=== PATIENT | female | born 1935 | race Caucasian/White ===

== ENCOUNTER 2016-04-26 13:52 | Observation (INO) | payer MEDICARE, BC ==
[2016-04-26] VITALS (8 sets, daily range): BP systolic 136–149; BP diastolic 60–73; PULSE 78–90; RESP 16–18; TEMP 98.2; O2SAT 94–98
[~2016-04-26] VITALS: Ht 162.6 cm; Wt 83.4 kg
[~2016-04-26 13:52] MED LIST: ALBU1AER INH; LEVO.075 PO; OXYC-360 PO; methotrexate IM
[2016-04-26] MEDS ORDERED: ALBUAER3 INH (14:06)
[2016-04-26] MEDS ORDERED: LEVO75TA3 PO (14:06)
[2016-04-26] MEDS ORDERED: METH2.5T PO (14:06)
[2016-04-26] MEDS ORDERED: PERC5TAB12 PO (14:06)
[2016-04-26] MEDS ORDERED: SODIUM CHLORIDE 0.9% FLUSH 5 ML FLUSH IVF PRN (14:15)
[2016-04-26 14:25] LABS: AUTOMATED NEUTROPHIL # 6.5 TH/MM3 (1.8-7.7); BASOPHIL % 0.5 % (0.0-2.0); EOSINOPHIL % 0.1 % (0.0-4.0); HEMATOCRIT 37.1 % (35.0-46.0); HEMO FLAGS DIFF FINAL; LYMPH % 6.9 % (9.0-44.0); LYMPHOCYTE # 0.5 TH/MM3 (1.0-4.8); MEAN CORPUSCULAR HEMOGLOBIN 32.4 PG (27.0-34.0); MEAN CORPUSCULAR HGB CONC 34.5 % (32.0-36.0); NEUT % 81.5 % (16.0-70.0); PLATELET COUNT 251 TH/MM3 (150-450); RED BLOOD COUNT 3.95 MIL/MM3 (4.00-5.30); RED CELL DISTRIBUTION WIDTH 14.4 % (11.6-17.2)
--- NOTE | 2016-04-26 14:36 | PD ---
HPI Chief Complaint: Syncope/Near-Syncope Time Seen by Provider: 14:01 Travel History International Travel<30 days: No Contact w/Intl Traveler<30days: No Traveled to known affect area: No History of Present Illness HPI Patient is a 72-year-old female with history of COPD who presents the emergency department with near-syncopal episode. She felt fine this morning and was doing some light housework. While standing she developed lightheadedness, dizziness, nausea and felt as though she may faint and fell to the ground. No complete syncopal episode. She denies any chest pain, worsening shortness of breath from baseline. EMS arrived and helped patient up from the floor. Her vital signs were unremarkable and she declined transport. Family came to be with patient for the rest of the day and she had a second episode nearly identical. This time he was called patient was hypotensive with systolics in the 80s prompting them to transport patient. In route, vital signs normal and patient denies any symptoms at this time. She denies any history of arrhythmia or recent GI bleeding. PFSH Past Medical History Arthritis: Yes Cancer: No Cardiovascular Problems: No COPD: Yes Endocrine: No Genitourinary: No Immune Disorder: Yes (ra) Neurologic: No Psychiatric: No Reproductive: No Respiratory: Yes Ulcer: Yes (hx of) Social History Alcohol Use: No Tobacco Use: No Substance Use: No Allergies-Medications (Allergen,Severity, Reaction): Coded Allergies: No Known Allergies (Unverified , 04/26/16) Reported Meds & Prescriptions Reported Meds & Active Scripts Active Reported Percocet (Oxycodone-Acetaminophen) 5-325 mg Tab 1 Tab PO Q4H PRN Proair Hfa 8.5 GM Inh (Albuterol Sulfate) 90 Mcg/Act Aer 1 Puff INH Q6HR PRN 108 mcg/actuation Methotrexate Unknown Strength Tab Unknown Dose PO Q7D Levothyroxine (Levothyroxine Sodium) 75 Mcg Tab 75 Mcg PO DAILY Review of Systems Except as stated in HPI: all other systems reviewed are Neg Physical Exam Narrative GENERAL: Elderly female in no acute distress SKIN: Warm and dry. HEAD: Normocephalic. EYES: No scleral icterus. No injection or drainage. ENT: Mucous membranes pink and moist. NECK: Supple CARDIOVASCULAR: Regular rate and rhythm. No murmur appreciated. RESPIRATORY: No accessory muscle use. Clear to auscultation. Breath sounds equal bilaterally. GASTROINTESTINAL: Abdomen soft, non-tender, nondistended. MUSCULOSKELETAL: No obvious deformities. No edema. NEUROLOGICAL: Awake and alert. Normal speech. PSYCHIATRIC: Appropriate mood and affect; insight and judgment normal. Data Data Last Documented VS Vital Signs Date Time Temp Pulse Resp B/P Pulse Ox O2 Delivery O2 Flow Rate FiO2 04/26/16 15:20 86 18 146/67 79 18 149/73 04/26/16 14:03 94 Room Air 04/26/16 13:59 98.2 Orders Electrocardiogram (04/26/16 14:01) Basic Metabolic Panel (Bmp) (04/26/16 14:01) Complete Blood Count With Diff (04/26/16 14:01) Magnesium (Mg) (04/26/16 14:01) Troponin I (04/26/16 14:01) Urinalysis - C+S If Indicated (04/26/16 14:01) Ecg Monitoring (04/26/16 14:01) Iv Access Insert/Monitor (04/26/16 14:01) Oximetry (04/26/16 14:01) Sodium Chloride 0.9% Flush (Ns Flush) (04/26/16 14:15) Orthostatic Vital Signs (04/26/16 14:52) Admit Order (Ed Use Only) (04/26/16 16:40) Labs Laboratory Tests Test 04/26/16 04/26/16 14:08 15:05 White Blood Count 8.0 TH/MM3 Red Blood Count 3.95 MIL/MM3 Hemoglobin 12.8 GM/DL Hematocrit 37.1 % Mean Corpuscular Volume 94.0 FL Mean Corpuscular Hemoglobin 32.4 PG Mean Corpuscular Hemoglobin 34.5 % Concent Red Cell Distribution Width 14.4 % Platelet Count 251 TH/MM3 Mean Platelet Volume 8.7 FL Neutrophils (%) (Auto) 81.5 % Lymphocytes (%) (Auto) 6.9 % Monocytes (%) (Auto) 11.0 % Eosinophils (%) (Auto) 0.1 % Basophils (%) (Auto) 0.5 % Neutrophils # (Auto) 6.5 TH/MM3 Lymphocytes # (Auto) 0.5 TH/MM3 Monocytes # (Auto) 0.9 TH/MM3 Eosinophils # (Auto) 0.0 TH/MM3 Basophils # (Auto) 0.0 TH/MM3 CBC Comment DIFF FINAL Differential Comment Sodium Level 137 MEQ/L Potassium Level 4.0 MEQ/L Chloride Level 102 MEQ/L Carbon Dioxide Level 24.4 MEQ/L Anion Gap 11 MEQ/L Blood Urea Nitrogen 18 MG/DL Creatinine 0.87 MG/DL Estimat Glomerular Filtration 63 ML/MIN Rate Random Glucose 94 MG/DL Calcium Level 8.6 MG/DL Magnesium Level 2.0 MG/DL Troponin I LESS THAN 0.02 NG/ML Urine Color YELLOW Urine Turbidity CLEAR Urine pH 6.5 Urine Specific [place] 1.019 Urine Protein NEG mg/dL Urine Glucose (UA) NEG mg/dL Urine Ketones NEG mg/dL Urine Occult Blood NEG Urine Nitrite NEG Urine Bilirubin NEG Urine Urobilinogen LESS THAN 2.0 MG/DL Urine Leukocyte Esterase NEG Urine WBC 1 /hpf Urine Squamous Epithelial 5 /hpf Cells Microscopic Urinalysis Comment CULT NOT INDICATED MDM Medical Decision Making Medical Screen Exam Complete: Yes Emergency Medical Condition: Yes Medical Record Reviewed: Yes Differential Diagnosis 72-year-old female with history of COPD here with near syncope episodes 2. Differential includes arrhythmia, electrolyte abnormality, symptomatic anemia, ACS, vasovagal spell. Narrative Course Patient placed on monitor, IV established and blood obtained. A twelve-lead EKG shows sinus rhythm with small Q waves in V1 and aVL but no acute ST abnormalities, normal intervals. Even attempting to stand at bedside in the emergency department patient is lightheaded and symptomatic. CBC, BMP, magnesium, troponin, urinalysis were obtained and unremarkable. Patient will be admitted for telemetry, serial enzymes and PT/OT Diagnosis Primary Impression: Pre-syncope Additional Impression: Generalized weakness Admitting Information Admitting Physician Requests: Observation Allison Bonilla MD Apr 26, 2016 14:36
[2016-04-26 14:40] LABS: ANION GAP 11 MEQ/L (5-15); BICARBONATE 24.4 MEQ/L (21.0-32.0); BLOOD UREA NITROGEN 18 MG/DL (7-18); CHLORIDE 102 MEQ/L (98-107); GLOMERULAR FILTRATION RATE 63 ML/MIN (>89); SODIUM (NA) 137 MEQ/L (136-145)
[2016-04-26 15:51] LABS: BLOOD, URINE NEG (NEG); COMMENT (UR) CULT NOT INDICATED; CULTURE IF INDICATED CULT NOT INDICATED; GLUCOSE,URINE NEG (NEG); KETONE, URINE NEG (NEG); NITRITE,URINE NEG (NEG); PH, URINE 6.5 (5.0-8.5); SQUAMOUS EPITHELIAL CELL URINE 5 /hpf (0-5); URINE COLOR YELLOW (YELLW/STRAW)
[2016-04-26] MEDS ORDERED: ONDANSETRON HCL 4 MG/2 ML VIAL IVP PRN (17:00)
[2016-04-26] MEDS ORDERED: SODIUM CHLORIDE 0.9% FLUSH 5 ML FLUSH FLUSH PRN (17:00)
[2016-04-26] MEDS ORDERED: oxyCODONE/ACETAMINOPHEN 5 MG/325 MG TAB PO PRN (17:00)
[2016-04-26] MEDS ORDERED: SENNOSIDES 8.6 MG TAB PO PRN (17:00)
[2016-04-26] MEDS ORDERED: MAGNESIUM HYDROXIDE SUSP 30 ML CUP PO PRN (17:00)
[2016-04-26] MEDS ORDERED: ACETAMINOPHEN 325 MG TAB PO PRN (17:00)
[2016-04-26] MEDS ORDERED: BISACODYL 10 MG SUPP PR PRN (17:00)
[2016-04-26] MEDS ORDERED: ALBUTEROL SULFATE 90 MCG/ACT HFA 8 GM INHALER INH PRN (17:00)
[2016-04-26] MEDS ORDERED: NALOXONE HCL 0.4 MG/ML AMP IV PRN (17:00)
--- NOTE | 2016-04-26 17:17 | RADRPT ---
EXAM DATE/TIME: 04/26/2016 16:58 [facility] COMPARISON: No previous studies available for comparison. INDICATIONS : Right knee pain after fall from standing height today MEDICAL HISTORY : None. SURGICAL HISTORY : Total knee replacement, right. ENCOUNTER: Initial ACUITY: 1 day PAIN SCORE: 3/10 LOCATION: Right anterior knee FINDINGS: AP and lateral views of the knee following arthroplasty reveals a prosthesis in anatomic alignment. F racture is not appreciated. Surgical drain is evident CONCLUSION: Status post total knee arthroplasty without fracture. Yohannes Gentile MD FACR Board Certified Radiologist. This report was verified electronically.
--- NOTE | 2016-04-26 17:46 | RADRPT ---
EXAM DATE/TIME: 04/26/2016 17:13 [facility] COMPARISON: No previous studies available for comparison. INDICATIONS : Cough, syncopal episode today MEDICAL HISTORY : None. SURGICAL HISTORY : None. ENCOUNTER: Initial ACUITY: 1 day PAIN SCORE: 0/10 LOCATION: Bilateral chest FINDINGS: The lungs are clear. The heart is minimally enlarged. The pulmonary vascularity is normal. There is n o evidence for infiltrate or failure. The portion of the bony skeleton visualized is unremarkable. CONCLUSION: Compensated cardiomegaly otherwise negative.. Yohannes Gentile MD FACR on April 26, 2016 at 17:44 Board Certified Radiologist. This report was verified electronically.
--- NOTE | 2016-04-26 17:50 | HP.UPD ---
H&P Update Note This is a 30-year-old female with a past history of right total knee replacement about 10 years ago. The knee has been doing well. The patient went out with her caregiver yesterday for dinner without problems. Today the patient had 2 episodes whereby "the right knee has given way. With the first episode 911 were called for a lift assist. With the second episode 911 were called again and the patient was brought into the hospital. Her systolic was 80. She did not pass out. She was seen by the undersigned in room E 57. She is alert and oriented and denies any pain in the right knee. She did have some back pain and sometimes has episodes of sciatica. She has been put on observation. Head CT is ordered in addition to carotid ultrasound. MRI will follow. Neurology consultation is requested. Full history and physical to follow David Garrett MD Apr 26, 2016 17:48
--- NOTE | 2016-04-26 17:51 | RADRPT ---
EXAM DATE/TIME: 04/26/2016 17:37 [facility] COMPARISON: No previous studies available for comparison. INDICATIONS : Syncopal episode today; fall. RADIATION DOSE: 56.35 CTDIvol (mGy) MEDICAL HISTORY : Chronic obstructive pulmonary disease. SURGICAL HISTORY : None. ENCOUNTER: Initial ACUITY: 1 day PAIN SCALE: 6/10 LOCATION: cranial TECHNIQUE: Multiple contiguous axial images were obtained of the head. Using automated exposure control and adj ustment of the mA and/or kV according to patient size, radiation dose was kept as low as reasonably a chievable to obtain optimal diagnostic quality images. FINDINGS: There is marked central and cortical atrophy with dilatation of ventricular and sulcal spaces. There is no parenchymal hemorrhage, acute infarction or mass lesion identified. There are no extra-axial fluid collections appreciated. The posterior fossa is unremarkable with midline fourth ventricle. T he portion of the orbits and paranasal sinuses visualized are unremarkable. CONCLUSION: Atrophy negative for acute process. Yohannes Gentile MD FACR on April 26, 2016 at 17:49 Board Certified Radiologist. This report was verified electronically.
--- NOTE | 2016-04-26 18:03 | HHI.PR ---
Objective Objective Results - Vital Signs Date Time Temp Pulse Resp B/P Pulse Ox O2 Delivery O2 Flow Rate FiO2 04/26/16 15:20 86 18 146/67 79 18 149/73 04/26/16 14:03 18 94 Room Air 04/26/16 13:59 98.2 90 16 136/60 94 Result Diagram: 04/26/16 1408 04/26/16 1408 Physical Exam Physical Exam PHYSICAL EXAMINATION GENERAL: This is a well-developed, well-nourished female who appears to be in no acute distress. She is alert and awake, []. HEAD: Normocephalic without any lesion or mass noted. Facial features appear symmetric. OROPHARYNGEAL: Oropharynx without erythema or edema. NECK: Supple. No nuchal rigidity or lymphadenopathy. Trachea midline without deviation. CARDIAC: Regular rhythm, regular rate, S1 and S2 are heard. Murmur []; no gallops or rubs. LUNGS: Clear to auscultation bilaterally. [] wheeze, [] rhonchi or [] rale. No use of accessory muscles on inspiration or expiration. ABDOMEN: Soft, nontender, no organomegaly or masses. Bowel sounds are heard in all four quadrants. No rebound. No guarding. EXTREMITIES: [] edema. Pulses equal bilateral. [] cyanosis. NEUROLOGICAL: Patient mood and affect appropriate. No focal deficit SKIN:Warm and moist A/P Assessment and Plan dictated H&P, [id number] TIA COPD /cough obesity presyncope episode lightheadedness Daisha Huang Apr 26, 2016 18:03
--- NOTE | 2016-04-26 18:30 | MH ---
cc: MORTEZA MAYORGA MD DATE OF ADMISSION 04/26/2016 DATE OF 1935 CHIEF COMPLAINT Fall, dizzy spells, right lower extremity weakness, travel in the last 30 days - none. HISTORY OF PRESENT ILLNESS This is a pleasant 72-year-old white female who had been in her usual state of health up until this a.m. Last night she went out to eat with a family member, came back home, slept well last night and had no issues. This morning around 9:00 a.m. she was not doing some light housework and had an acute onset of lightheadedness and dizziness. She went down to the floor and fell on her right side, hitting her right knee. She is postop right knee replacement approximately eight years ago currently walks with assistance of a cane or a walker in her home. The patient denies any chest pain. No shortness of breath. No nausea, vomiting, no headache. She has not been sick with fever to her knowledge, but she has complained of just some mild hacky cough over the last three or four days. She does have a history of COPD. The patient denies any previous heart problems and denies any previous syncopal episodes, denies any previous dizzy spells. The patient was noted to have two falls this morning. The first time she was gotten up by the fire department, but refused to come to the emergency room. Not long after that she went to the bathroom and fell again. When attempting to stand and walk, the patient stated to her family member, "I can't control my right leg". PAST MEDICAL HISTORY 1. COPD, 2. Arthritis, 3. Osteoarthritis. 4. History of an ulcer 5. Hypothyroidism PAST SURGICAL HISTORY Right knee replacement. ALLERGIES None known. MEDICATIONS Reported, 1. Percocet 2. ____ 3. Methotrexate 4. Thyroxine SOCIAL HISTORY The patient has never smoked in her life, denies any alcohol, denies any illicit drugs. Up until this past week, she was living in her home with her brother long-term. The patient has never and her and her brother have lived together since according to the family member. Currently, she will be alone in her home. FAMILY HISTORY Both parents lived to be in their 90s and of old age. REVIEW OF SYSTEMS A 10-point review was done. Positives noted were dizziness, lightheadedness, right lower extremity weakness. Other systems are negative or unremarkable. PHYSICAL EXAMINATION VITAL SIGNS: Temperature is 98.2, pulse ranges between 79 and 90, respiratory rate 18, blood pressure 146/67 and 149/73. O2 sat 94 on room air. GENERAL: Obese white female looks to be younger than her stated age resting on a stretcher, alert, oriented and conversational. SKIN: [place], warm and dry. No rashes. No bruising. No edema noted. HEENT: Atraumatic, normocephalic. PERRLA at two. Mucous membranes are pink and moist. No scleral icterus. Tongue is midline. No oral exudate. NECK: Thick, supple. CARDIOVASCULAR: S1-S2 with no murmurs, rubs or gallops appreciated. The patient has no pedal edema. Pulses are intact. PULMONARY: Lungs are essentially clear anteriorly and posteriorly with no wheezes, rales or rhonchi. ABDOMEN: Obese, round, soft, nontender. Active bowel sounds in all four quads. MUSCULOSKELETAL: She has equal hand superintendent renting managing, moves her upper extremities with purpose. She can overcome resistance in her left and right leg and can wiggle toes on both feet on command. NEUROLOGIC: She is alert, oriented, a fairly good historian. PSYCHIATRIC: Appropriate mood and affect. LABORATORY DATA WBC eight, RBC 3.95, hemoglobin 12.8, hematocrit 31.7, platelet count 251, neutrophil count auto percentage 81.5, lymphocyte 6.9, monocyte 11. Urine is yellow clear, pH 6.5, specific gravity 1.019, negative for protein, glucose, ketones, occult blood, nitrites, bilirubin, leukocyte esterase. Culture is not indicated. Chemistry - sodium 137, potassium four, chloride 102, carbon dioxide 24.4, anion gap 11, BUN 18, creatinine 0.87, GFR 63, random glucose 94, calcium 8.6, magnesium 2. troponin less than 0.02. IMAGING STUDIES Chest x-ray is pending. CT of the head is pending. Right knee x-ray shows no acute fracture. ASSESSMENT 1. possible transient ischemic attack, rule out CVA, 2. COPD/cough 3. Obesity. 4. Primary syncopal episode with lightheadedness PLAN Admit initially for observation. We will monitor her vital signs q. four and as warranted. 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 Gentle hydration. Reconcile her medications. Monitor vital signs for any fever, change in heart rate, blood pressure or respiratory rate We will continue with further testing, carotid ultrasound, CT of the brain MRI of the brain. DVT prophylaxis with heparin, bowel regimen, pain management with her home meds Percocet, Synthroid for her hypothyroidism. After completing tests and, depending on her findings, we will continue with her course of treatment. Currently the patient is full code, full aggressive care and we will follow. Dictated by LIDIA Helm MD NASIM Arriaza/ /5:52 PM /8:14 AM
--- NOTE | 2016-04-26 18:34 | RADRPT ---
EXAM DATE/TIME: 04/26/2016 17:44 [facility] COMPARISON: No previous studies available for comparison. INDICATIONS : Syncope. MEDICAL HISTORY : Chronic obstructive pulmonary disease. Ulcers. Rheumatoid arthritis. SURGICAL HISTORY : Blood transfusions. ENCOUNTER: Initial ACUITY: 3 days PAIN SCORE: 0/10 LOCATION: Bilateral neck PEAK SYSTOLIC VELOCITIES (cm/sec): ICA/CCA RATIO: Right: 0.9 Left: 0.5 ICA: Right: 67 Left: 50 CCA: Right: 76 Left: 95 ECA: Right: 91 Left: 77 VERTEBRAL: Right: 48 antegrade Left: 60 antegrade Elevated flow velocities and ICA/CCA ratios have been found to correlate with increased degrees of vessel stenosis, calculated as percentage of diameter relative to a normal segment of distal ICA/CCA FINDINGS: Minimal heterogeneous plaque is identified in both bifurcations. RIGHT CAROTID: No significant stenosis is visualized. The waveforms are within normal limits. LEFT CAROTID: No significant stenosis is visualized. The waveforms are within normal limits. VERTEBRAL ARTERIES: Antegrade flow is seen in both vertebral arteries. MISCELLANEOUS: None. CONCLUSION: Minimal plaque. No evidence of hemodynamically significant stenosis. Antegrade flow in both vertebral arteries. Maicol Alexander MD on April 26, 2016 at 18:32 Board Certified Radiologist. This report was verified electronically.
[2016-04-26] MEDS: SODIUM CHLOR 0.45% 1000 ML INJ 1,000 ML IV SCH (18:42)
[2016-04-26] MEDS: HEPARIN SODIUM - SQ 10,000 UNITS/ML VIAL SQ SCH (18:43)
--- NOTE | 2016-04-26 20:39 | RADRPT ---
EXAM DATE/TIME: 04/26/2016 19:39 [facility] COMPARISON: No previous studies available for comparison. INDICATIONS : TIA. MEDICAL HISTORY : Chronic obstructive pulmonary disease. Arthritis. Syncope, GERD SURGICAL HISTORY : Total knee replacement, right. ENCOUNTER: Initial ACUITY: 1 day PAIN SCORE: 3/10 LOCATION: Bilateral cranial TECHNIQUE: Multiplanar, multisequence MRI of the brain was performed without contrast. FINDINGS: CEREBRUM: The ventricles are moderately enlarged. No evidence of midline shift, mass lesion, hem orrhage or acute infarction. No extraaxial fluid collections are seen. The pituitary gland and supr asellar cistern are normal in configuration. WHITE MATTER: Advanced cerebral white matter disease with confluent T2 hyperintensity is identifi ed throughout the periventricular and deep white matter tracks. There is no evidence of associated re stricted diffusion. POSTERIOR FOSSA: The cerebellum and brainstem are intact. The 4th ventricle is midline. The cere bellopontine angle is unremarkable. The cerebellar tonsils are normal in position. DIFFUSION IMAGING: No focal areas of restricted diffusion are seen. No evidence of acute infarct ion. EXTRACRANIAL: The visualized portions of the orbits and paranasal sinuses are unremarkable. CONCLUSION: Advanced cerebral white matter disease characteristic of chronic microvascular ischem ic change with central atrophy. No evidence of acute infarct, hemorrhage, mass or edema. Maicol Alexander MD on April 26, 2016 at 20:35 Board Certified Radiologist. This report was verified electronically.
[2016-04-26] MEDS: SODIUM CHLORIDE 0.9% FLUSH 5 ML FLUSH FLUSH SCH (21:29)
[2016-04-26 21:55] LABS: CREATINE KINASE 184 U/L (26-192)
[2016-04-27] VITALS (7 sets, daily range): BP systolic 119–137; BP diastolic 66–89; PULSE 68–80; RESP 16–20; TEMP 97.8–98.9; O2SAT 97–99
[2016-04-27] MEDS: HEPARIN SODIUM - SQ 10,000 UNITS/ML VIAL SQ SCH ×2 (05:25→18:08)
[2016-04-27] MEDS: SODIUM CHLOR 0.45% 1000 ML INJ 1,000 ML IV SCH ×2 (05:34→18:11)
[2016-04-27 07:22] LABS: AUTOMATED NEUTROPHIL # 3.5 TH/MM3 (1.8-7.7); BASOPHIL % 0.8 % (0.0-2.0); EOSINOPHIL % 0.3 % (0.0-4.0); HEMATOCRIT 35.2 % (35.0-46.0); HEMO FLAGS DIFF FINAL; LYMPH % 18.8 % (9.0-44.0); LYMPHOCYTE # 1.1 TH/MM3 (1.0-4.8); MEAN CELL VOLUME 93.8 FL (80.0-100.0); MEAN CORPUSCULAR HEMOGLOBIN 31.6 PG (27.0-34.0); MEAN CORPUSCULAR HGB CONC 33.7 % (32.0-36.0); MONO % 17.8 % (0.0-8.0); NEUT % 62.3 % (16.0-70.0); PLATELET COUNT 233 TH/MM3 (150-450); RED BLOOD COUNT 3.76 MIL/MM3 (4.00-5.30); RED CELL DISTRIBUTION WIDTH 13.9 % (11.6-17.2); WHITE BLOOD COUNT 5.6 TH/MM3 (4.0-11.0)
[2016-04-27 07:31] LABS: POTASSIUM 3.6 MEQ/L (3.5-5.1)
[2016-04-27 07:35] LABS: BICARBONATE 27.1 MEQ/L (21.0-32.0)
[2016-04-27 07:39] LABS: INDIRECT BILIRUBIN 0.3 MG/DL (0.0-0.8); TOTAL BILIRUBIN ADULT 0.4 MG/DL (0.2-1.0)
--- NOTE | 2016-04-27 08:52 | HHI.PR ---
Subjective History of Present Illness Patient deny any complaints. no acute issue no dizziness. MRI brain no stroke Neurology consulted High TSH Increase levothyroxine to 88 mcgm PO Daily from 75 mcgm. Review of Systems Constitutional Constitutional: Fatigue, Weakness Vitals/Results Intake & Output 04/26/16 04/26/16 04/27/16 15:00 23:00 07:00 Intake Total 600 ml Output Total 500 ml Balance 100 ml Intake IV Total 600 ml Output Urine Total 500 ml # Voids 1 Vital Signs Vital Signs Date Time Temp Pulse Resp B/P Pulse Ox O2 Delivery O2 Flow Rate FiO2 04/27/16 04:39 98.0 79 20 129/89 97 04/27/16 00:51 98.9 80 16 137/68 98 04/26/16 23:30 78 04/26/16 21:57 78 18 146/62 98 Nasal Cannula 2 04/26/16 17:00 78 16 147/71 98 Nasal Cannula 2 04/26/16 16:00 78 16 149/73 95 Nasal Cannula 2 04/26/16 15:20 86 18 146/67 79 18 149/73 04/26/16 15:00 80 16 147/66 96 Nasal Cannula 2 04/26/16 14:03 18 94 Room Air 04/26/16 13:59 98.2 90 16 136/60 94 CBC/BMP: 04/27/16 0627 04/27/16 0627 Lab Results Laboratory Tests Test 04/26/16 04/26/16 04/26/16 04/27/16 14:08 15:05 21:00 06:27 White Blood Count 8.0 TH/MM3 5.6 TH/MM3 Red Blood Count 3.95 MIL/MM3 3.76 MIL/MM3 Hemoglobin 12.8 GM/DL 11.9 GM/DL Hematocrit 37.1 % 35.2 % Mean Corpuscular Volume 94.0 FL 93.8 FL Mean Corpuscular Hemoglobin 32.4 PG 31.6 PG Mean Corpuscular Hemoglobin 34.5 % 33.7 % Concent Red Cell Distribution Width 14.4 % 13.9 % Platelet Count 251 TH/MM3 233 TH/MM3 Mean Platelet Volume 8.7 FL 8.9 FL Neutrophils (%) (Auto) 81.5 % 62.3 % Lymphocytes (%) (Auto) 6.9 % 18.8 % Monocytes (%) (Auto) 11.0 % 17.8 % Eosinophils (%) (Auto) 0.1 % 0.3 % Basophils (%) (Auto) 0.5 % 0.8 % Neutrophils # (Auto) 6.5 TH/MM3 3.5 TH/MM3 Lymphocytes # (Auto) 0.5 TH/MM3 1.1 TH/MM3 Monocytes # (Auto) 0.9 TH/MM3 1.0 TH/MM3 Eosinophils # (Auto) 0.0 TH/MM3 0.0 TH/MM3 Basophils # (Auto) 0.0 TH/MM3 0.0 TH/MM3 CBC Comment DIFF FINAL DIFF FINAL Differential Comment Sodium Level 137 MEQ/L 139 MEQ/L Potassium Level 4.0 MEQ/L 3.6 MEQ/L Chloride Level 102 MEQ/L 104 MEQ/L Carbon Dioxide Level 24.4 MEQ/L 27.1 MEQ/L Anion Gap 11 MEQ/L 8 MEQ/L Blood Urea Nitrogen 18 MG/DL 13 MG/DL Creatinine 0.87 MG/DL 0.72 MG/DL Estimat Glomerular Filtration 63 ML/MIN 78 ML/MIN Rate Random Glucose 94 MG/DL 89 MG/DL Calcium Level 8.6 MG/DL 7.6 MG/DL Magnesium Level 2.0 MG/DL Troponin I LESS THAN 0.02 LESS THAN 0.02 NG/ML NG/ML Urine Color YELLOW Urine Turbidity CLEAR Urine pH 6.5 Urine Specific [place] 1.019 Urine Protein NEG mg/dL Urine Glucose (UA) NEG mg/dL Urine Ketones NEG mg/dL Urine Occult Blood NEG Urine Nitrite NEG Urine Bilirubin NEG Urine Urobilinogen LESS THAN 2.0 MG/DL Urine Leukocyte Esterase NEG Urine WBC 1 /hpf Urine Squamous Epithelial 5 /hpf Cells Microscopic Urinalysis Comment CULT NOT INDICATED Total Creatine Kinase 184 U/L Total Bilirubin 0.4 MG/DL Direct Bilirubin 0.1 MG/DL Indirect Bilirubin 0.3 MG/DL Aspartate Amino Transf 29 U/L (AST/SGOT) Alanine Aminotransferase 27 U/L (ALT/SGPT) Alkaline Phosphatase 70 U/L Total Protein 7.3 GM/DL Albumin 2.9 GM/DL Thyroid Stimulating Hormone 5.660 uIU/ML 3rd Gen Test 04/27/16 08:22 Total Creatine Kinase 180 U/L Troponin I 0.02 NG/ML Physical Exam General General Appearance: Well Developed, Well Nourished, No Acute Distress, Comfortable Eyes Eye Exam: Sclera White, Extraocular Movement Intact Throat Throat Exam: Oral Mucosa [place] & Moist, Oral Pharynx Normal Neck Neck Exam: Neck Supple, Trachea Midline Pulmonary Resp Exam: Clear Bilaterally, Breath Sounds Equal, No Distress Cardiology CV Exam: Regular, Normal Sinus Rhythm Gastrointestinal/Abdomen GI Exam: Soft, Non-Tender, Bowel Sounds Present Musculoskeletal MS Exam: Normal Tone Integumentary Skin Exam: Clear, Warm, Dry, Intact, Normal Turgor Neurologic Neuro Exam: Alert, Awake, Oriented, Speech Clear, Moving All Extremities, No Focal Deficits PUD Prophylasis PUD Prophylaxis: Protonix Assessment/Plan Assessment/Plan ASSESSMENT 1. possible transient ischemic attack, rule out CVA, MRI brain no stroke Neurology consulted 2. COPD/cough 3. Obesity. 4. Primary syncopal episode with lightheadedness PLAN monitor her vital signs q. four and as warranted. She will be on bedrest and out of bed with only assistance, case monitor, regular diet. Gentle hydration. Monitor vital signs for any fever, change in heart rate, blood pressure or respiratory rate carotid ultrasound, CT of the brain MRI of the brain. ..nothing acute. DVT prophylaxis with heparin , bowel regimen, pain management with her home meds Percocet, Synthroid for her hypothyroidism. After completing tests and, depending on her findings, we will continue with her course of treatment. Currently the patient is full code, full aggressive care and we will follow. Discussed Condition with: Patient Mateo Mccormack MD Apr 27, 2016 08:52
[2016-04-27] MEDS ORDERED: LEVOTHYROXINE SODIUM 75 MCG TAB PO SCH (09:00)
[2016-04-27] MEDS: SODIUM CHLORIDE 0.9% FLUSH 5 ML FLUSH FLUSH SCH ×2 (09:41→21:00)
--- NOTE | 2016-04-27 18:43 | EKG ---
Date Performed: 04/26/2016 Time Performed: 14:16:25 PTAGE: 80 years EKG: Sinus rhythm LEFT ANTERIOR FASCICULAR BLOCK MODERATE VOLTAGE CRITERIA FOR LVH, CONSIDER NORMAL VARIANT CONSIDER M YOCARDIAL INFARCTION-age indeterminate. ABNORMAL ECG PREVIOUS TRACING : 06/09/2014 10.31 DOCTOR: Chris Willis Interpretating Date/Time 04/27/2016 18:42:33
--- NOTE | 2016-04-27 20:14 | MB ---
cc: EMMA HENLEY. PHD DATE OF CONSULTATION 04/27/16 REASON FOR CONSULTATION Vertigo. HISTORY OF PRESENT ILLNESS Ms. Gilbert is a 80-year-old woman usually in good health until a couple of days ago when she noted sudden onset of severe dizziness which caused her to fall. She had a vertigo type sensation. She fell, did not hit her head. There was no loss of consciousness. No double vision. No slurred speech. No focal weakness. She feels as though the symptoms have resolved at the present time. PAST MEDICAL HISTORY 1. Arthritis, 2. COPD. MEDICATIONS 1. Percocet 2. ProAir. 3. Methotrexate 4. Levothyroxine. ALLERGIES None known. NEUROLOGIC EXAMINATION Her blood pressure is 121/72, pulse 70, respiratory rate is 20, temperature 97.8 degrees. Higher cortical functions normal. Cranial nerves II-XII are normal in detail. Motor exam 5/5 strength of all groups in both upper and lower extremities. There is no drift. Fine motor skills are normal. Reflexes are symmetric. Cerebellar testing is normal with no dysmetria. IMAGING STUDIES MRI of the brain shows ischemic demyelinization, no acute change is identified. No acute stroke. She had a CT of the brain which was normal. Carotid ultrasound - minimal plaquing. No significant stenosis. LABORATORY DATA White count 5600, hemoglobin 11.9, hematocrit 35.2%, platelet count 233,000. Sodium is 139, potassium 3.6, chloride 104, CO2 27, BUN is 13, creatinine 0.72, AST is 29, ALT is 27, TSH is 5.6. CARDIOLOGY STUDIES EKG left anterior fascicular block, LVH. IMPRESSION Acute onset of unsteadiness with a fall and vertigo which has resolved. The differential would include a possible TIA involving the cerebellum. Orthostatic hypotension I think is less likely given the fact that she was already upper when the episode came on spontaneously. There is no evidence of any completed stroke on the MRI scan. RECOMMENDATIONS Would recommend starting aspirin 81 mg daily for the possibility of TIA. We will also obtain an echocardiogram to rule out embolic source. Also monitor cardiac telemetry, rule out atrial fibrillation. We will check a lipid panel as well. MD ILIANA Lopez/ /7:52 PM /8:05 PM
[2016-04-27] MEDS: ASPIRIN 81 MG CHEW TAB PO SCH (22:32)
[2016-04-28 00:25] VITALS: BP 131/68; PULSE 80; RESP 16; TEMP 98; O2SAT 95
[2016-04-28 04:00] VITALS: BP 160/86; PULSE 68; RESP 20; TEMP 98.8; O2SAT 98
[2016-04-28] MEDS: HEPARIN SODIUM - SQ 10,000 UNITS/ML VIAL SQ SCH ×2 (05:55→17:00)
[2016-04-28] MEDS: LEVOTHYROXINE SODIUM 88 MCG TAB PO SCH (05:56)
[2016-04-28 07:16] LABS: AUTOMATED NEUTROPHIL # 1.7 TH/MM3 (1.8-7.7); BASOPHIL # 0.1 TH/MM3 (0-0.2); BASOPHIL % 1.3 % (0.0-2.0); EOSINOPHIL # 0.2 TH/MM3 (0-0.4); EOSINOPHIL % 3.6 % (0.0-4.0); HEMATOCRIT 35.7 % (35.0-46.0); HEMO FLAGS DIFF FINAL; LYMPH % 36.4 % (9.0-44.0); LYMPHOCYTE # 1.6 TH/MM3 (1.0-4.8); MEAN CELL VOLUME 95.6 FL (80.0-100.0); MEAN CORPUSCULAR HEMOGLOBIN 31.9 PG (27.0-34.0); MEAN CORPUSCULAR HGB CONC 33.3 % (32.0-36.0); MONO % 19.2 % (0.0-8.0); NEUT % 39.5 % (16.0-70.0); PLATELET COUNT 211 TH/MM3 (150-450); RED BLOOD COUNT 3.73 MIL/MM3 (4.00-5.30); RED CELL DISTRIBUTION WIDTH 14.6 % (11.6-17.2); WHITE BLOOD COUNT 4.4 TH/MM3 (4.0-11.0)
[2016-04-28 07:26] LABS: POTASSIUM 3.7 MEQ/L (3.5-5.1)
[2016-04-28 07:44] LABS: BICARBONATE 27.2 MEQ/L (21.0-32.0); TOTAL BILIRUBIN ADULT 0.4 MG/DL (0.2-1.0)
[2016-04-28 07:47] LABS: CALCIUM-PROTEIN CORRECTED 7.5 MG/DL (8.5-10.1)
[2016-04-28 08:00] VITALS: BP 139/67; PULSE 66; RESP 20; TEMP 97.8; O2SAT 98
[2016-04-28] MEDS: SODIUM CHLOR 0.45% 1000 ML INJ 1,000 ML IV SCH (08:45)
[2016-04-28] MEDS: ASPIRIN 81 MG CHEW TAB PO SCH (08:45)
[2016-04-28] MEDS: SODIUM CHLORIDE 0.9% FLUSH 5 ML FLUSH FLUSH SCH ×2 (08:45→20:52)
[2016-04-28 10:20] LABS: HDL CHOLESTEROL 59.5 MG/DL (40.0-60.0)
--- NOTE | 2016-04-28 11:33 | HHI.PR ---
Subjective History of Present Illness Patient deny any complaints. no acute issue no dizziness. MRI brain no stroke Neurology input noted ok to dc after 2 D Echo ok to dc home today Review of Systems Constitutional Constitutional: Fatigue, Weakness Vitals/Results Intake & Output 04/27/16 04/27/16 04/28/16 15:00 23:00 07:00 Intake Total 525 ml 825 ml Balance 525 ml 825 ml Intake Oral 525 ml IV Total 825 ml # Voids 2 2 # Bowel Movements 0 Vital Signs Vital Signs Date Time Temp Pulse Resp B/P Pulse Ox O2 Delivery O2 Flow Rate FiO2 04/28/16 08:00 97.8 66 20 139/67 98 04/28/16 04:00 98.8 68 20 160/86 98 04/28/16 00:25 98.0 80 16 131/68 95 04/27/16 21:23 98.9 77 20 124/66 98 04/27/16 20:00 75 04/27/16 16:00 97.8 70 20 121/72 98 04/27/16 12:00 98.7 68 20 119/68 99 CBC/BMP: 04/28/16 0624 04/28/16 0624 Lab Results Laboratory Tests Test 04/28/16 06:24 White Blood Count 4.4 TH/MM3 Red Blood Count 3.73 MIL/MM3 Hemoglobin 11.9 GM/DL Hematocrit 35.7 % Mean Corpuscular Volume 95.6 FL Mean Corpuscular Hemoglobin 31.9 PG Mean Corpuscular Hemoglobin 33.3 % Concent Red Cell Distribution Width 14.6 % Platelet Count 211 TH/MM3 Mean Platelet Volume 8.8 FL Neutrophils (%) (Auto) 39.5 % Lymphocytes (%) (Auto) 36.4 % Monocytes (%) (Auto) 19.2 % Eosinophils (%) (Auto) 3.6 % Basophils (%) (Auto) 1.3 % Neutrophils # (Auto) 1.7 TH/MM3 Lymphocytes # (Auto) 1.6 TH/MM3 Monocytes # (Auto) 0.8 TH/MM3 Eosinophils # (Auto) 0.2 TH/MM3 Basophils # (Auto) 0.1 TH/MM3 CBC Comment DIFF FINAL Differential Comment Sodium Level 139 MEQ/L Potassium Level 3.7 MEQ/L Chloride Level 105 MEQ/L Carbon Dioxide Level 27.2 MEQ/L Anion Gap 7 MEQ/L Blood Urea Nitrogen 10 MG/DL Creatinine 0.57 MG/DL Estimat Glomerular Filtration 103 ML/MIN Rate Random Glucose 85 MG/DL Calcium Level 7.4 MG/DL Protein Corrected Calcium 7.5 MG/DL Total Bilirubin 0.4 MG/DL Aspartate Amino Transf 25 U/L (AST/SGOT) Alanine Aminotransferase 26 U/L (ALT/SGPT) Alkaline Phosphatase 64 U/L Total Protein 6.9 GM/DL Albumin 2.6 GM/DL Triglycerides Level 63 MG/DL Cholesterol Level 151 MG/DL LDL Cholesterol 79 MG/DL HDL Cholesterol 59.5 MG/DL Cholesterol/HDL Ratio 2.53 RATIO Physical Exam General General Appearance: Well Developed, Well Nourished, No Acute Distress, Comfortable Eyes Eye Exam: Sclera White, Extraocular Movement Intact Throat Throat Exam: Oral Mucosa [place] & Moist, Oral Pharynx Normal Neck Neck Exam: Neck Supple, Trachea Midline Pulmonary Resp Exam: Clear Bilaterally, Breath Sounds Equal, No Distress Cardiology CV Exam: Regular, Normal Sinus Rhythm Gastrointestinal/Abdomen GI Exam: Soft, Non-Tender, Bowel Sounds Present Musculoskeletal MS Exam: Normal Tone Integumentary Skin Exam: Clear, Warm, Dry, Intact, Normal Turgor Neurologic Neuro Exam: Alert, Awake, Oriented, Speech Clear, Moving All Extremities, No Focal Deficits PUD Prophylasis PUD Prophylaxis: Protonix Assessment/Plan Assessment/Plan ASSESSMENT 1. possible transient ischemic attack, rule out CVA, MRI brain no stroke Neurology input noted ok to dc after 2 D Echo 2. COPD/cough 3. Obesity. 4. Primary syncopal episode with lightheadedness PLAN monitor her vital signs q. four and as warranted. 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 Gentle hydration. Monitor vital signs for any fever, change in heart rate, blood pressure or respiratory rate carotid ultrasound, CT of the brain MRI of the brain. ..nothing acute. DVT prophylaxis with heparin , bowel regimen, pain management with her home meds Percocet, Synthroid for her hypothyroidism. After completing tests and, depending on her findings, we will continue with her course of treatment. Currently the patient is full code, ok to dc home today f/u with PCP Neurology 1 week. Discussed Condition with: Patient Mateo Mccormack MD Apr 28, 2016 11:33
[2016-04-28 12:00] VITALS: BP 136/73; PULSE 69; RESP 18; TEMP 97.8; O2SAT 97
--- NOTE | 2016-04-28 14:40 | EC ---
Study Study Date:04/28/2016 STUDY CONCLUSIONS SUMMARY - Left ventricle: The cavity size was normal. Wall thickness was normal. Systolic function was normal. The estimated ejection fraction was in the range of 55% to 60%. Wall motion was normal; there were no regional wall motion abnormalities. - Mitral valve: Mild regurgitation. - Tricuspid valve: Mild regurgitation. - Pulmonary arteries: PA peak pressure: 40mm Hg (S). If LV function is below 40, please consider prescribing an ACEI or ARB or document rationale for non-use. PROCEDURE DATA STUDY STATUS: Elective. Procedure: Transthoracic echocardiography. Image quality was poor. Scanning was performed from the parasternal, apical, and subcostal acoustic windows. Study completion: The patient tolerated the procedure well. Transthoracic echocardiography. M-mode, complete 2D, complete spectral Doppler, and color Doppler. Patient status: Inpatient. CARDIAC ANATOMY LEFT VENTRICLE: The cavity size was normal. Wall thickness was normal. Systolic function was normal. The estimated ejection fraction was in the range of 55% to 60%. Wall motion was normal; there were no regional wall motion abnormalities. AORTIC VALVE: Trileaflet; normal thickness leaflets. Doppler: Transvalvular velocity was within the normal range. There was no stenosis. No regurgitation. AORTA: Aortic root: The aortic root was normal in size. MITRAL VALVE: Structurally normal valve. Doppler: Transvalvular velocity was within the normal range. There was no evidence for stenosis. Mild regurgitation. LEFT ATRIUM: The atrium was normal in size. RIGHT VENTRICLE: The cavity size was normal. Wall thickness was normal. PULMONIC VALVE: Doppler: Transvalvular velocity was within the normal range. There was no evidence for stenosis. No regurgitation. TRICUSPID VALVE: Structurally normal valve. Doppler: Transvalvular velocity was within the normal range. Mild regurgitation. PULMONARY ARTERY: The main pulmonary artery was normal-sized. Systolic pressure was within the normal range. RIGHT ATRIUM: The atrium was normal in size. PERICARDIUM: There was no pericardial effusion. SYSTEMIC VEINS: Inferior vena cava: The vessel was normal in size. BASIC MEASUREMENTS ADULT NORMAL Left ventricle LV internal dimension, ED, chordal level, 46 mm 43-52 PLAX LV internal dimension, ES, chordal level, 34.7 mm 23-38 PLAX Fractional shortening, chordal level, PLAX *25 % >29 LV posterior wall thickness, ED 9.5 mm IVS/LVPW ratio, ED 1.24 <1.3 Ventricular septum Septal thickness, ED 11.8 mm Aortic valve Leaflet separation 16 mm 15-26 Right ventricle RV internal dimension, ED, PLAX 29.1 mm 19-38 BASIC MEASUREMENTS ADULT NORMAL Aortic valve Leaflet separation 16 mm 15-26 Aorta Root diameter, ED 23 mm 20-37 Left atrium Anterior-posterior dimension, ES 27 mm 19-40 LA/aortic root ratio 1.17 DOPPLER MEASUREMENTS ADULT NORMAL Main pulmonary artery Pressure, S *40 mm Hg =30 Mitral valve Peak E-wave velocity 66.1 cm/s Peak A-wave velocity 84.4 cm/s Peak E/A ratio 0.8 Tricuspid valve Regurgitant peak velocity 276 cm/s Peak RV-RA gradient, S 30 mm Hg Maximal regurgitant velocity 276 cm/s Systemic veins Estimated CVP 10 mm Hg Right ventricle RV pressure, S *40 mm Hg <30 LEGEND: Mean values are shown as u=mean value. Asterisk (*) cedeno values outside specified normal range. Prepared and signed by Veronica Null [id number]
[2016-04-28] MEDS ORDERED: SYNT88TA PO (15:27)
[2016-04-28] MEDS ORDERED: Aspirin Chew PO (15:27)
--- NOTE | 2016-04-28 19:22 | HHI.PR ---
Review/Management Diagnosis ataxia--possible TIA Plan continue low dose asa PT for ambulation ok to dc home tomorrow from neuro standpoint Diagnosis/Plan: Subjective Subjective Comments No acute events reported no episodes of ataxia or vertigo Active Medications Current Medications Medications (Trade) Dose Ordered Sig/Marita Route Start Time Stop Time Status Last Admin (NS Flush) 2 ml UNSCH PRN IVF 04/26/16 14:15 (NS Flush) 2 ml UNSCH PRN FLUSH 04/26/16 17:00 (NS Flush) 2 ml BID FLUSH 04/26/16 21:00 04/27/16 09:41 (Tylenol) 650 mg Q4H PRN PO 04/26/16 17:00 04/28/16 06:04 (Zofran Inj) 4 mg Q6H PRN IVP 04/26/16 17:00 (Dulcolax Supp) 10 mg DAILY PRN [place] 04/26/16 17:00 (Milk Of Magnesia Liq) 30 ml Q12H PRN PO 04/26/16 17:00 (Senokot) 17.2 mg Q12H PRN PO 04/26/16 17:00 (Heparin Inj) 5,000 units Q12H SQ 04/26/16 17:00 04/28/16 17:00 (Narcan Inj) 0.4 mg UNSCH PRN IV 04/26/16 17:00 (Proair Hfa Inh) 1 puff Q6HR PRN INH 04/26/16 17:00 (Percocet 5-325 Mg) 1 tab Q4H PRN PO 04/26/16 17:00 (Synthroid) 88 mcg DAILY@06 PO 04/28/16 06:00 04/28/16 05:56 (Aspirin Chew) 81 mg DAILY PO 04/27/16 20:15 04/28/16 08:45 Allergies Allergies Coded Allergies No Known Allergies (Unverified04/26/16) Exam I&O / VS 04/27/16 04/27/16 04/28/16 15:00 23:00 07:00 Intake Total 525 ml 825 ml Balance 525 ml 825 ml Intake Oral 525 ml IV Total 825 ml # Voids 2 2 # Bowel Movements 0 Vital Signs Date Time Temp Pulse Resp B/P Pulse Ox O2 Delivery O2 Flow Rate FiO2 04/28/16 12:00 97.8 69 18 136/73 97 04/28/16 08:00 97.8 66 20 139/67 98 04/28/16 04:00 98.8 68 20 160/86 98 04/28/16 00:25 98.0 80 16 131/68 95 04/27/16 21:23 98.9 77 20 124/66 98 04/27/16 20:00 75 Exam Comments alert, speech normal CN 2-12 normal Motor --no focal deficit Objective Micro and Labs Laboratory Tests Test 04/28/16 06:24 White Blood Count 4.4 Red Blood Count 3.73 Hemoglobin 11.9 Hematocrit 35.7 Mean Corpuscular Volume 95.6 Mean Corpuscular Hemoglobin 31.9 Mean Corpuscular Hemoglobin 33.3 Concent Red Cell Distribution Width 14.6 Platelet Count 211 Mean Platelet Volume 8.8 Neutrophils (%) (Auto) 39.5 Lymphocytes (%) (Auto) 36.4 Monocytes (%) (Auto) 19.2 Eosinophils (%) (Auto) 3.6 Basophils (%) (Auto) 1.3 Neutrophils # (Auto) 1.7 Lymphocytes # (Auto) 1.6 Monocytes # (Auto) 0.8 Eosinophils # (Auto) 0.2 Basophils # (Auto) 0.1 CBC Comment DIFF FINAL Differential Comment Sodium Level 139 Potassium Level 3.7 Chloride Level 105 Carbon Dioxide Level 27.2 Anion Gap 7 Blood Urea Nitrogen 10 Creatinine 0.57 Estimat Glomerular Filtration 103 Rate Random Glucose 85 Calcium Level 7.4 Protein Corrected Calcium 7.5 Total Bilirubin 0.4 Aspartate Amino Transf 25 (AST/SGOT) Alanine Aminotransferase 26 (ALT/SGPT) Alkaline Phosphatase 64 Total Protein 6.9 Albumin 2.6 Triglycerides Level 63 Cholesterol Level 151 LDL Cholesterol 79 HDL Cholesterol 59.5 Cholesterol/HDL Ratio 2.53 Diagnostic Tests ECHo--normal Rohit Maza PhD Apr 28, 2016 19:22
[2016-04-28 20:07] VITALS: PULSE 79
[2016-04-28 21:05] VITALS: BP 140/73; PULSE 80; RESP 18; TEMP 98.7; O2SAT 95
[2016-04-29] VITALS (8 sets, daily range): BP systolic 123–148; BP diastolic 67–95; PULSE 65–83; RESP 18–20; TEMP 96.6–100.1; O2SAT 94–99
[2016-04-29] MEDS: LEVOTHYROXINE SODIUM 88 MCG TAB PO SCH (05:00)
[2016-04-29] MEDS: HEPARIN SODIUM - SQ 10,000 UNITS/ML VIAL SQ SCH ×2 (05:00→17:05)
--- NOTE | 2016-04-29 08:23 | HHI.PR ---
Subjective History of Present Illness Patient deny any complaints. no acute issue no dizziness. MRI brain no stroke Neurology input noted ok to dc after 2 D Echo ok to dc home today Review of Systems Constitutional Constitutional: Fatigue, Weakness Vitals/Results Intake & Output 04/28/16 04/28/16 04/29/16 15:00 23:00 07:00 Intake Total 480 ml Balance 480 ml Intake Oral 480 ml # Voids 2 1 # Bowel Movements 2 Vital Signs Vital Signs Date Time Temp Pulse Resp B/P Pulse Ox O2 Delivery O2 Flow Rate FiO2 04/29/16 04:00 98.2 74 18 123/67 95 04/29/16 01:15 97 Nasal Cannula 1.00 04/29/16 01:15 98.7 97 04/29/16 00:00 100.1 78 20 145/78 97 04/28/16 21:05 98.7 80 18 140/73 95 04/28/16 20:07 79 04/28/16 20:00 95 Nasal Cannula 2.00 04/28/16 12:00 97.8 69 18 136/73 97 CBC/BMP: 04/28/16 0624 04/28/16 0624 Physical Exam General General Appearance: Well Developed, Well Nourished, No Acute Distress, Comfortable Eyes Eye Exam: Sclera White, Extraocular Movement Intact Throat Throat Exam: Oral Mucosa [place] & Moist, Oral Pharynx Normal Neck Neck Exam: Neck Supple, Trachea Midline Pulmonary Resp Exam: Clear Bilaterally, Breath Sounds Equal, No Distress Cardiology CV Exam: Regular, Normal Sinus Rhythm Gastrointestinal/Abdomen GI Exam: Soft, Non-Tender, Bowel Sounds Present Musculoskeletal MS Exam: Normal Tone Integumentary Skin Exam: Clear, Warm, Dry, Intact, Normal Turgor Neurologic Neuro Exam: Alert, Awake, Oriented, Speech Clear, Moving All Extremities, No Focal Deficits PUD Prophylasis PUD Prophylaxis: Protonix Assessment/Plan Assessment/Plan ASSESSMENT 1. possible transient ischemic attack, rule out CVA, MRI brain no stroke Neurology input noted ok to dc after 2 D Echo 2. COPD/cough 3. Obesity. 4. Primary syncopal episode with lightheadedness PLAN monitor her vital signs q. four and as warranted. 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 Gentle hydration. Monitor vital signs for any fever, change in heart rate, blood pressure or respiratory rate carotid ultrasound, CT of the brain MRI of the brain. ..nothing acute. DVT prophylaxis with heparin , bowel regimen, pain management with her home meds Percocet, Synthroid for her hypothyroidism. After completing tests and, depending on her findings, we will continue with her course of treatment. Currently the patient is full code, ok to dc home today f/u with PCP Neurology 1 week. Discussed Condition with: Patient Mateo Mccormack MD Apr 29, 2016 08:23
[2016-04-29] MEDS: SODIUM CHLORIDE 0.9% FLUSH 5 ML FLUSH FLUSH SCH ×2 (08:27→21:18)
[2016-04-29] MEDS: ASPIRIN 81 MG CHEW TAB PO SCH (08:27)
--- NOTE | 2016-04-29 08:37 | HHI.FF ---
Face to Face Verification Diagnosis: (1) Generalized weakness (2) Pre-syncope Physical Therapy Order: Evaluate and Treat, Improve ambulation Occupational Therapy Order: Evaluate and Treat, Gross motor coordination Home Health Nursing Order: Medical education Medication education-adverse effect Home Health Aide Order: To Assist In: Bathing and personal care Ems Educator Order: To Evaluate: Living conditions/environment I have seen patient Lissy Gilbert on 04/29/16. My clinical findings support the need for the requested home health care services because: Ltd mobility - disease progression Limited ability to care for self I certify that my clinical findings support that this patient is homebound because: Unsteady gait/balance Mateo Mccormack MD Apr 29, 2016 08:37
[2016-04-29 16:53] LABS: GLUCOSE,URINE NEG (NEG); KETONE, URINE NEG (NEG); NITRITE,URINE NEG (NEG); PH, URINE 6.5 (5.0-8.5)
[2016-04-29 16:58] LABS: BLOOD, URINE MOD (NEG)
[2016-04-29 16:59] LABS: URINE COLOR YELLOW (YELLW/STRAW)
[2016-04-29 17:00] LABS: BACTERIA, URINE MANY /hpf; SQUAMOUS EPITHELIAL CELL URINE 0-5 /hpf (0-5)
[2016-04-29 17:01] LABS: COMMENT (UR) CULTURE INDICATED; CULTURE IF INDICATED CULTURE INDICATED
[2016-04-29] MEDS ORDERED: cefTRIAXone 1,000 MG/NS 100 ML IV SCH ×4 (18:00→21:00)
--- NOTE | 2016-04-29 19:43 | HHI.PR ---
Review/Management Diagnosis ataxia--possible TIA Plan continue low dose asa PT for ambulation ok to dc home tomorrow from neuro standpoint Diagnosis/Plan: Subjective Subjective Comments No acute events reported Active Medications Current Medications Medications (Trade) Dose Ordered Sig/Marita Route Start Time Stop Time Status Last Admin (NS Flush) 2 ml UNSCH PRN IVF 04/26/16 14:15 (NS Flush) 2 ml UNSCH PRN FLUSH 04/26/16 17:00 (NS Flush) 2 ml BID FLUSH 04/26/16 21:00 04/27/16 09:41 (Tylenol) 650 mg Q4H PRN PO 04/26/16 17:00 04/28/16 06:04 (Zofran Inj) 4 mg Q6H PRN IVP 04/26/16 17:00 (Dulcolax Supp) 10 mg DAILY PRN [place] 04/26/16 17:00 (Milk Of Magnesia Liq) 30 ml Q12H PRN PO 04/26/16 17:00 (Senokot) 17.2 mg Q12H PRN PO 04/26/16 17:00 (Heparin Inj) 5,000 units Q12H SQ 04/26/16 17:00 04/29/16 17:05 (Narcan Inj) 0.4 mg UNSCH PRN IV 04/26/16 17:00 (Proair Hfa Inh) 1 puff Q6HR PRN INH 04/26/16 17:00 (Percocet 5-325 Mg) 1 tab Q4H PRN PO 04/26/16 17:00 (Synthroid) 88 mcg DAILY@06 PO 04/28/16 06:00 04/29/16 05:00 Aspirin 81 mg 81 mg DAILY PO 04/27/16 20:15 04/29/16 08:27 (Rocephin Inj/NS Inj) 100 ml @ 200 mls/hr Q24H IV 04/29/16 21:00 Allergies Allergies Coded Allergies No Known Allergies (Unverified04/26/16) Exam I&O / VS 04/28/16 04/28/16 04/29/16 15:00 23:00 07:00 Intake Total 480 ml Balance 480 ml Intake Oral 480 ml # Voids 2 1 # Bowel Movements 2 Vital Signs Date Time Temp Pulse Resp B/P Pulse Ox O2 Delivery O2 Flow Rate FiO2 04/29/16 16:00 97.6 80 18 126/75 95 04/29/16 12:00 97.3 83 18 148/85 95 04/29/16 08:00 96.6 74 18 142/79 94 04/29/16 04:00 98.2 74 18 123/67 95 04/29/16 01:15 97 Nasal Cannula 1.00 04/29/16 01:15 98.7 97 04/29/16 00:00 100.1 78 20 145/78 97 04/28/16 21:05 98.7 80 18 140/73 95 04/28/16 20:07 79 04/28/16 20:00 95 Nasal Cannula 2.00 Exam Comments alert, speech normal CN 2-12 normal Motor --no focal deficit Objective Micro and Labs Laboratory Tests Test 04/29/16 16:41 Urine Color YELLOW Urine Turbidity CLOUDY Urine pH 6.5 Urine Specific [place] 1.012 Urine Protein TRACE Urine Glucose (UA) NEG Urine Ketones NEG Urine Occult Blood MOD Urine Nitrite NEG Urine Bilirubin NEG Urine Leukocyte Esterase SMALL Urine RBC 4-9 Urine WBC 25-49 Urine Squamous Epithelial 0-5 Cells Urine Bacteria MANY Microscopic Urinalysis Comment CULTURE INDICATED Date/Time Procedure Status Source Growth 04/29/16 16:41 Urine Culture Received Urine Clean Catch Pending Rohit Maza PhD Apr 29, 2016 19:43
[2016-04-30] VITALS: BP 141/93; PULSE 71; RESP 20; TEMP 98.3; O2SAT 96
[2016-04-30 04:00] VITALS: BP 151/85; PULSE 74; RESP 20; TEMP 98.3; O2SAT 95
[2016-04-30] MEDS: HEPARIN SODIUM - SQ 10,000 UNITS/ML VIAL SQ SCH (05:13)
[2016-04-30] MEDS: LEVOTHYROXINE SODIUM 88 MCG TAB PO SCH (05:13)
[2016-04-30 06:58] LABS: AUTOMATED NEUTROPHIL # 2.5 TH/MM3 (1.8-7.7); BASOPHIL # 0.1 TH/MM3 (0-0.2); EOSINOPHIL # 0.2 TH/MM3 (0-0.4); EOSINOPHIL % 3.1 % (0.0-4.0); HEMATOCRIT 38.5 % (35.0-46.0); HEMO FLAGS DIFF FINAL; LYMPH % 35.8 % (9.0-44.0); LYMPHOCYTE # 1.8 TH/MM3 (1.0-4.8); MEAN CELL VOLUME 93.4 FL (80.0-100.0); MEAN CORPUSCULAR HEMOGLOBIN 31.8 PG (27.0-34.0); MONO % 11.7 % (0.0-8.0); NEUT % 48.4 % (16.0-70.0); PLATELET COUNT 240 TH/MM3 (150-450); RED BLOOD COUNT 4.12 MIL/MM3 (4.00-5.30); RED CELL DISTRIBUTION WIDTH 13.4 % (11.6-17.2); WHITE BLOOD COUNT 5.2 TH/MM3 (4.0-11.0)
[2016-04-30 07:00] LABS: CHLORIDE 102 MEQ/L (98-107); POTASSIUM 3.7 MEQ/L (3.5-5.1); SODIUM (NA) 138 MEQ/L (136-145)
--- NOTE | 2016-04-30 07:48 | HHI.PR ---
Subjective History of Present Illness Patient deny any complaints. no acute issue no dizziness. MRI brain no stroke Neurology input noted ok to dc after 2 D Echo Urine examination shows UTI on Rocephin IV. Review of Systems Constitutional Constitutional: Fatigue, Weakness Vitals/Results Intake & Output 04/29/16 04/29/16 04/30/16 15:00 23:00 07:00 Intake Total 570 ml 60 ml Output Total 0 ml Balance 570 ml 60 ml Intake Oral 420 ml 60 ml IV Total 150 ml 0 ml Output Urine Total 0 ml # Voids 2 2 # Bowel Movements 0 0 Vital Signs Vital Signs Date Time Temp Pulse Resp B/P Pulse Ox O2 Delivery O2 Flow Rate FiO2 04/30/16 07:00 Room Air 04/30/16 04:00 98.3 74 20 151/85 95 04/30/16 00:00 98.3 71 20 141/93 96 04/29/16 20:04 65 04/29/16 20:00 98.4 70 20 147/95 99 04/29/16 19:00 99 Room Air 04/29/16 16:00 97.6 80 18 126/75 95 04/29/16 12:00 97.3 83 18 148/85 95 04/29/16 08:00 96.6 74 18 142/79 94 CBC/BMP: 04/30/16 0540 04/30/16 0540 Lab Results Laboratory Tests Test 04/29/16 04/30/16 16:41 05:40 Urine Color YELLOW Urine Turbidity CLOUDY Urine pH 6.5 Urine Specific [place] 1.012 Urine Protein TRACE mg/dL Urine Glucose (UA) NEG mg/dL Urine Ketones NEG mg/dL Urine Occult Blood MOD Urine Nitrite NEG Urine Bilirubin NEG Urine Leukocyte Esterase SMALL Urine RBC 4-9 /hpf Urine WBC 25-49 /hpf Urine Squamous Epithelial 0-5 /hpf Cells Urine Bacteria MANY /hpf Microscopic Urinalysis Comment CULTURE INDICATED White Blood Count 5.2 TH/MM3 Red Blood Count 4.12 MIL/MM3 Hemoglobin 13.1 GM/DL Hematocrit 38.5 % Mean Corpuscular Volume 93.4 FL Mean Corpuscular Hemoglobin 31.8 PG Mean Corpuscular Hemoglobin 34.0 % Concent Red Cell Distribution Width 13.4 % Platelet Count 240 TH/MM3 Mean Platelet Volume 9.2 FL Neutrophils (%) (Auto) 48.4 % Lymphocytes (%) (Auto) 35.8 % Monocytes (%) (Auto) 11.7 % Eosinophils (%) (Auto) 3.1 % Basophils (%) (Auto) 1.0 % Neutrophils # (Auto) 2.5 TH/MM3 Lymphocytes # (Auto) 1.8 TH/MM3 Monocytes # (Auto) 0.6 TH/MM3 Eosinophils # (Auto) 0.2 TH/MM3 Basophils # (Auto) 0.1 TH/MM3 CBC Comment DIFF FINAL Differential Comment Sodium Level 138 MEQ/L Potassium Level 3.7 MEQ/L Chloride Level 102 MEQ/L Random Glucose 86 MG/DL Microbiology Microbiology 04/29/16 Urine Culture, Received Pending Physical Exam General General Appearance: Well Developed, Well Nourished, No Acute Distress, Comfortable Eyes Eye Exam: Sclera White, Extraocular Movement Intact Throat Throat Exam: Oral Mucosa [place] & Moist, Oral Pharynx Normal Neck Neck Exam: Neck Supple, Trachea Midline Pulmonary Resp Exam: Clear Bilaterally, Breath Sounds Equal, No Distress Cardiology CV Exam: Regular, Normal Sinus Rhythm Gastrointestinal/Abdomen GI Exam: Soft, Non-Tender, Bowel Sounds Present Musculoskeletal MS Exam: Normal Tone Integumentary Skin Exam: Clear, Warm, Dry, Intact, Normal Turgor Neurologic Neuro Exam: Alert, Awake, Oriented, Speech Clear, Moving All Extremities, No Focal Deficits PUD Prophylasis PUD Prophylaxis: Protonix Assessment/Plan Assessment/Plan ASSESSMENT 1. possible transient ischemic attack, rule out CVA, MRI brain no stroke Neurology input noted ok to dc after 2 D Echo 2. COPD/cough 3. Obesity. 4. Primary syncopal episode with lightheadedness PLAN monitor her vital signs q. four and as warranted. She will be on bedrest and out of bed with only assistance, hall monitor, regular diet. Gentle hydration. Monitor vital signs for any fever, change in heart rate, blood pressure or respiratory rate carotid ultrasound, CT of the brain MRI of the brain. ..nothing acute. DVT prophylaxis with heparin , bowel regimen, pain management with her home meds Percocet, Synthroid for her hypothyroidism. After completing tests and, depending on her findings, we will continue with her course of treatment. Currently the patient is full code, UTI.. Urine examination shows UTI on Rocephin IV. ok to dc home today f/u with PCP Neurology 1 week. Discussed Condition with: Patient Mateo Mccormack MD Apr 30, 2016 07:48
[2016-04-30 08:00] VITALS: BP 134/84; PULSE 68; PULSE 77; RESP 18; TEMP 98.4; O2SAT 95
[2016-04-30 08:05] LABS: ALKALINE PHOSPHATASE 69 U/L (45-117); ALT (GPT) 26 U/L (10-53); ANION GAP 9 MEQ/L (5-15); AST (GOT) 28 U/L (15-37); BICARBONATE 27.1 MEQ/L (21.0-32.0); BLOOD UREA NITROGEN 12 MG/DL (7-18); GLOMERULAR FILTRATION RATE 93 ML/MIN (>89); TOTAL BILIRUBIN ADULT 0.5 MG/DL (0.2-1.0)
[2016-04-30] MEDS: ASPIRIN 81 MG CHEW TAB PO SCH (08:31)
[2016-04-30] MEDS: SODIUM CHLORIDE 0.9% FLUSH 5 ML FLUSH FLUSH SCH (08:31)
[2016-04-30] MEDS ORDERED: CEFT500T3 PO (08:48)
--- NOTE | 2016-05-05 06:12 | MD ---
cc: MATEO PINTO MD ADMISSION DATE: 04/26/2016 DISCHARGE DATE: 04/30/2016 DISPOSITION: Okay to discharge the patient home. CONDITION AT THE TIME OF DISCHARGE: Satisfactory. ACTIVITY: As tolerated. DIET: Cardiac diet. ALLERGIES: No drug allergies. MEDICATIONS: 1. Levothyroxine 88 mcg p.o. daily. 2. Aspirin 81 milligrams p.o. daily. 3. Albuterol 1 puff inhalation q. 6-hour. 4. Methotrexate unknown dose q. 7 days. 5. Percocet 5-25 q. six p.r.n. The patient is to follow up with PCP and neurology in one week. ADMITTING DIAGNOSIS: Dizziness, possible TIA, rule out stroke. MRI brain shows nothing no stroke. Neurology has seen the patient. Okay to DC after 2-D echo. A 2-D echo was done by cardiology. Ejection fraction 55-60%. Wall motion all normal. Mitral valve mild regurgitation. Tricuspid valve, mild regurgitation. Pulmonary artery peak pressure is 40 mmHg. Left ventricular cavity and size was normal. Thickness was normal. Systolic function was normal. Other comorbidity included hypothyroidism. The patient's the was high. Synthroid dose increased from 75 mcg to 88 mcg. History of obesity. History of COPD. HOSPITAL COURSE: This is 80 year-old female admitted with the above-mentioned complaints, seen by neurology. He had MRI done, does not show anything acute. The patient remained stable during hospital stay. No acute event happened. The patient was discharged in a satisfactory condition. Troponin time 0.02. Lipid profile was normal. LDL cholesterol was 79. HDL cholesterol 59.5. Further details in the medical record. Mateo Pinto MD EA/RAMA /3:31 PM /5:01 AM
--- NOTE | 2016-05-08 09:40 | MD ---
cc: MATEO PINTO MD ADMISSION DATE: 04/26/2016 DISCHARGE DATE: 04/30/2016 DISPOSITION Okay to discharge the patient home with home health care. CONDITION AT THE TIME OF DISCHARGE Satisfactory. ACTIVITY As tolerated. DIET Cardiac diet. ALLERGIES No known drug allergies. DISCHARGE MEDICATIONS 1. Ceftin 500 mg twice a daily. 2. Levothyroxine 50 mcg p.o. daily. 3. Aspirin 81 mg p.o. daily. 4. Albuterol 90 mcg one puff inhalation q.6 hours. 5. Methotrexate unknown dosage. 6. Percocet 5/325 p.o. q.6 hours p.r.n. pain. ADMISSION DIAGNOSIS Possible to transient ischemic attack, possible CVA. MRI of the brain did not show any stroke. Neurology has seen the patient. Okay to discharge the patient. OTHER COMORBIDITIES COPD. Obesity. Transient syncope, patient with lightheadedness. HOSPITAL COURSE This is 80-year-old female admitted with dizziness. MRI of her brain did not show any acute change. Dr. Rohit Maza saw the patient. The patient remained stable. No acute event happened. The patient was discharged in satisfactory condition. Further details in the medical record. Mateo Pinto MD EA/ARTIS /10:02 PM /8:30 AM
== END 2016-04-30 11:45 | disposition home health service (06) ==
LOC: NEPE 13:52 → NEDH 16:42 → PH3A 23:22
PROVIDERS: ADMIT Family Medicine; ATTEND Family Medicine
DX: R55 Syncope and collapse (principal); J44.9 Chronic obstructive pulmonary disease, unspecified; I44.4 Left anterior fascicular block; R11.2 Nausea with vomiting, unspecified; R53.1 Weakness; E03.9 Hypothyroidism, unspecified; B96.20 Unspecified Escherichia coli [E. coli] as the cause of diseases classified elsewhere
CPT/HCPCS: 70450; 70551; 71010; 73564; 80048; 80053; 80061; 80076; 81001; 82550; 83735; 84443; 84484; 85025; 87077; 87086; 87186; 93005; 93306; 93880; 97162; 99285; G0378; G8987; G8988; J0696; J1644

== ENCOUNTER 2016-12-04 04:15 | Observation (INO) | payer MEDICARE, BC ==
[~2016-12-04] VITALS: Ht 165.1 cm; Wt 72.0 kg
[2016-12-04] VITALS (9 sets, daily range): BP systolic 121–140; BP diastolic 58–88; PULSE 73–98; RESP 16–20; TEMP 98–99.6; O2SAT 93–99
[~2016-12-04 04:15] MED LIST changes: -ALBU1AER INH; +ALBUAER3 INH; +Aspirin Chew PO; +CEFT500T3 PO; -LEVO.075 PO; +METH2.5T PO; -OXYC-360 PO; +PERC5TAB12 PO; +SYNT88TA PO; -methotrexate IM
--- NOTE | 2016-12-04 05:08 | PD ---
HPI Chief Complaint: General Weakness Time Seen by Provider: 04:48 Travel History International Travel<30 days: No Contact w/Intl Traveler<30days: No Traveled to known affect area: No History of Present Illness HPI The patient is a 81 year old female who presents to the [facility] emergency department with a history of cough and congestion that began 3 days ago. Last night, she also fell down. She is unsure if she lost her balance. She slid down the wall. She did not hit her head or have LOC. She did not injure herself. The boom master came out to help her up as she has been weak with the cough and was unable to get up on her own. They told her that her HR was elevated up to 130 and that she should be evaluated. She was then brought in by her cousin by POV. She has a history of COPD. She has had increased SOB for the last 2 weeks. She has had chest congestion however her cough is not productive. On review of systems otherwise, the patient denies any fevers, neck pain, chest pain, abdominal pain, vomiting, diarrhea, urinary symptoms, or neurologic symptoms. She last moved her bowels 2 days ago. No blood in her stool. Her PCP is Dr. Moiz Umanzor. [facility] Past Medical History Narrative Medical The patient's past medical history is significant for COPD, RA, Peptic ulcer in the past, hypothyroidism. Arthritis: Yes (RA AND OSTEO) Cancer: No Cardiovascular Problems: No COPD: Yes Endocrine: Yes Gastrointestinal Disorders: Yes Genitourinary: No Immune Disorder: Yes (RA) Implanted Vascular Access Dvce: Yes Musculoskeletal: Yes Neurologic: Yes Psychiatric: No Reproductive: No Respiratory: Yes Thyroid Disease: Yes Ulcer: Yes (hx of) Tetanus Vaccination: Never Vaccinated Influenza Vaccination: No Past Surgical History Narrative Surgical The patient's past surgical history is significant for right knee replacement. Joint Replacement: Yes (RIGHT KNEE) Other Surgery: Yes Social History Alcohol Use: No Tobacco Use: No Substance Use: No Allergies-Medications (Allergen,Severity, Reaction): Coded Allergies: No Known Allergies (Unverified , 12/04/16) Reported Meds & Prescriptions Reported Meds & Active Scripts Active Reported Proair Hfa 8.5 GM Inh (Albuterol Sulfate) 90 Mcg/Act Aer 1 Puff INH Q6HR PRN 108 mcg/actuation Methotrexate Unknown Strength Tab Unknown Dose PO Q7D Review of Systems Except as stated in HPI: all other systems reviewed are Neg General / Constitutional: No: Fever Eyes: No: Visual changes HENT: Positive: Congestion, No: Headaches Cardiovascular: Positive: Dyspnea on exertion, No: Chest Pain or Discomfort Respiratory: Positive: Cough, Shortness of Breath, Wheezing Gastrointestinal: No: Abdominal Pain Genitourinary: No: Dysuria Musculoskeletal: No: Pain Skin: No Rash Neurologic: Positive: Weakness (generalized weakness), No: Focal Abnormalities , Change in Mentation, Slurred Speech, Sensory Disturbance Psychiatric: No: Depression Endocrine: No: Polydipsia Hematologic/Lymphatic: No: Easy Bruising Physical Exam Narrative General: The patient is a well-developed well-nourished female in no acute distress. Head and Neck exam: Head is normocephalic atraumatic. Eyes: EOMI, pupils are equal round and reactive to light. Nose: Midline septum with pink mucous membranes Mouth: Dentition unremarkable. Moist mucus membranes. Posterior oropharynx is not erythematous. No tonsillar hypertrophy. Uvula midline. Airway patent. Neck: No palpable lymphadenopathy. No nuchal rigidity. No thyromegaly. Cardiovascular: Regular rate and rhythm without murmurs, gallops, or rubs. No pulse deficit to the extremities on simultaneous auscultation and palpation of her radial artery. Lungs: Expiratory wheezes are audible throughout bilateral lung najera. No rhonchi, no crackles. No accessory muscle use. No tripoding. No paroxysmal abdominal breathing. She is doing some pursed lip breathing with any movements. Abdomen: Soft, without tenderness to palpation in all 4 quadrants of the abdomen. No guarding, rebound, or rigidity. Normal bowel sounds are audible. No tenderness on palpation of McBurney's point Extremities: No clubbing, cyanosis, or edema. 2+ pulses in all 4 extremities. No calf tenderness on palpation. Back: No spinous process tenderness to palpation. No costovertebral angle tenderness to palpation. Neurologic Exam: Grossly nonfocal. Skin Exam: No rash noted. Intact skin that is warm and dry. Data Data Last Documented VS Vital Signs Date Time Temp Pulse Resp B/P (MAP) Pulse Ox O2 Delivery O2 Flow Rate FiO2 12/04/16 04:41 95 Room Air 12/04/16 04:19 98.1 98 16 133/88 (103) Orders Orders Electrocardiogram (12/04/16 05:08) Complete Blood Count With Diff (12/04/16 05:08) Comprehensive Metabolic Panel (12/04/16 05:08) Creatine Kinase (Cpk) (12/04/16 05:08) Ckmb (Isoenzyme) Profile (12/04/16 05:08) Troponin I (12/04/16 05:08) B-Type Natriuretic Peptide (12/04/16 05:08) Prothrombin Time / Inr (Pt) (12/04/16 05:08) Act Partial Throm Time (Ptt) (12/04/16 05:08) Lipase (12/04/16 05:08) Urinalysis - C+S If Indicated (12/04/16 05:08) Magnesium (Mg) (12/04/16 05:08) Chest, Single Ap (12/04/16 05:08) Iv Access Insert/Monitor (12/04/16 05:08) Ecg Monitoring (12/04/16 05:08) Oximetry (12/04/16 05:08) CKMB (12/04/16 05:15) CKMB% (12/04/16 05:15) Blood Culture (12/04/16 06:08) Sodium Chloride 0.9% Flush (Ns Flush) (12/04/16 06:15) Methylprednisolone So Succ Inj (Solumedr (12/04/16 06:15) Albuterol-Ipratropium Neb (Duoneb Neb) (12/04/16 06:15) Ceftriaxone Inj (Rocephin Inj) (12/04/16 06:15) Azithromycin Inj (Zithromax Inj) (12/04/16 06:15) Urine Culture (12/04/16 06:00) Admit Order (Ed Use Only) (12/04/16 07:10) Labs Laboratory Tests Test 12/04/16 05:15 12/04/16 06:00 White Blood Count 7.9 TH/MM3 Red Blood Count 4.01 MIL/MM3 Hemoglobin 12.4 GM/DL Hematocrit 36.1 % Mean Corpuscular Volume 90.1 FL Mean Corpuscular Hemoglobin 30.8 PG Mean Corpuscular Hemoglobin Concent 34.2 % Red Cell Distribution Width 16.3 % Platelet Count 266 TH/MM3 Mean Platelet Volume 8.3 FL Neutrophils (%) (Auto) 84.5 % Lymphocytes (%) (Auto) 8.7 % Monocytes (%) (Auto) 6.3 % Eosinophils (%) (Auto) 0.0 % Basophils (%) (Auto) 0.5 % Neutrophils # (Auto) 6.7 TH/MM3 Lymphocytes # (Auto) 0.7 TH/MM3 Monocytes # (Auto) 0.5 TH/MM3 Eosinophils # (Auto) 0.0 TH/MM3 Basophils # (Auto) 0.0 TH/MM3 CBC Comment DIFF FINAL Differential Comment Prothrombin Time 11.8 SEC Prothromb Time International Ratio 1.1 RATIO Activated Partial Thromboplast Time 29.4 SEC Blood Urea Nitrogen 14 MG/DL Creatinine 0.78 MG/DL Random Glucose 105 MG/DL Total Protein 8.5 GM/DL Albumin 3.3 GM/DL Calcium Level 8.5 MG/DL Magnesium Level 2.0 MG/DL Alkaline Phosphatase 103 U/L Aspartate Amino Transf (AST/SGOT) 34 U/L Alanine Aminotransferase (ALT/SGPT) 44 U/L Total Bilirubin 0.4 MG/DL Sodium Level 136 MEQ/L Potassium Level 3.8 MEQ/L Chloride Level 103 MEQ/L Carbon Dioxide Level 24.6 MEQ/L Anion Gap 8 MEQ/L Estimat Glomerular Filtration Rate 71 ML/MIN Total Creatine Kinase 140 U/L Creatine Kinase MB 1.2 NG/ML Troponin I LESS THAN 0.02 NG/ML B-Type Natriuretic Peptide 18 PG/ML Lipase 133 U/L Urine Color YELLOW Urine Turbidity HAZY Urine pH 5.5 Urine Specific [place] 1.023 Urine Protein TRACE mg/dL Urine Glucose (UA) NEG mg/dL Urine Ketones NEG mg/dL Urine Occult Blood SMALL Urine Nitrite NEG Urine Bilirubin NEG Urine Urobilinogen LESS THAN 2.0 MG/DL Urine Leukocyte Esterase LARGE Urine RBC 13 /hpf Urine WBC 10 /hpf Urine Squamous Epithelial Cells 2 /hpf Urine Renal Epithelial Cells 5 /hpf Urine Bacteria FEW /hpf Urine Mucus FEW /lpf Urine Yeast (Budding) FEW Microscopic Urinalysis Comment CULTURE INDICATED MDM Medical Decision Making Medical Screen Exam Complete: Yes Emergency Medical Condition: Yes Medical Record Reviewed: Yes Interpretation(s) Last Impressions Chest X-Ray 12/04/16 0505 Signed Impressions: Service Date/Time: Sunday, December 04, 2016 05:15 - CONCLUSION: Stable chest with no acute disease Bill Main MD Differential Diagnosis COPD exacerbation, versus pneumonia, versus new-onset congestive heart failure, versus acute coronary syndrome Narrative Course During the course of the patients emergency department visit, the patients history, examination, and differential diagnosis were reviewed with the patient. The patient had IV access obtained and blood work sent for analysis. The patient was placed on a monitor technician with oximetry and blood pressure monitoring. An ECG was done on arrival. The patient's ECG shows a sinus rhythm left anterior fascicular block, no acute ST segment elevation. The patient was initially provided DuoNeb nebs 2, Solu-Medrol 125 mg IV, Rocephin 1 g IV, Zithromax 500 IV. The patients laboratory studies were reviewed and remarkable for a white count of 7.9, hemoglobin 12.4, platelets 266 with a neutrophil percent of 84.5, CMP is remarkable for a GFR 71, initial set of cardiac enzymes are negative, BNP is 18 ruling out congestive heart failure, lipase 133, PT 11.8, PTT 29.4, urinalysis shows small occult blood, large leukocyte esterase, 13 rbc's, 10 wbc' s, few bacteria. Radiology studies were reviewed and remarkable for a chest x-ray that shows no acute infiltrate. No evidence of cardiopulmonary disease. After nebulizer treatments, the patient was reexamined. The patient continues to have significant dyspnea on exertion with continued soft expiratory wheezes. The patient will be admitted to the hospital for continued evaluation and treatment of the COPD exacerbation The patients results were discussed with the patient, including the plan of care. I explained that further testing and/ or monitoring is indicated based on the patients history, examination, and/ or laboratory findings. Therefore, I recommended admission for additional evaluation. The patient expressed understanding and was agreeable with this plan. The patient was admitted to the hospital in stable condition and sent to a bed under the care of the [facility]. Physician Communication Physician Communication The patient's case was discussed with Bill Puentes who did agree to admit the patient for further evaluation and treatment at this time. Diagnosis Primary Impression: COPD exacerbation Admitting Information Admitting Physician Requests: Observation Cari Katz MD Dec 04, 2016 05:08
[2016-12-04 05:33] LABS: AUTOMATED NEUTROPHIL # 6.7 TH/MM3 (1.8-7.7); BASOPHIL % 0.5 % (0.0-2.0); HEMATOCRIT 36.1 % (35.0-46.0); HEMO FLAGS DIFF FINAL; LYMPH % 8.7 % (9.0-44.0); LYMPHOCYTE # 0.7 TH/MM3 (1.0-4.8); MEAN CELL VOLUME 90.1 FL (80.0-100.0); MEAN CORPUSCULAR HEMOGLOBIN 30.8 PG (27.0-34.0); MEAN CORPUSCULAR HGB CONC 34.2 % (32.0-36.0); MONO % 6.3 % (0.0-8.0); NEUT % 84.5 % (16.0-70.0); PLATELET COUNT 266 TH/MM3 (150-450); RED BLOOD COUNT 4.01 MIL/MM3 (4.00-5.30); RED CELL DISTRIBUTION WIDTH 16.3 % (11.6-17.2); WHITE BLOOD COUNT 7.9 TH/MM3 (4.0-11.0)
[2016-12-04 05:44] LABS: APTT (PATIENT) 29.4 SEC (24.3-30.1); INTERNATIONAL NORMALIZED RATIO 1.1 RATIO; PROTHROMBIN TIME - PATIENT 11.8 SEC (9.8-11.6)
[2016-12-04 06:00] LABS: ALT (GPT) 44 U/L (10-53); ANION GAP 8 MEQ/L (5-15); AST (GOT) 34 U/L (15-37); BICARBONATE 24.6 MEQ/L (21.0-32.0); BLOOD UREA NITROGEN 14 MG/DL (7-18); CHLORIDE 103 MEQ/L (98-107); GLOMERULAR FILTRATION RATE 71 ML/MIN (>89); POTASSIUM 3.8 MEQ/L (3.5-5.1); SODIUM (NA) 136 MEQ/L (136-145)
[2016-12-04 06:04] LABS: ALKALINE PHOSPHATASE 103 U/L (45-117); CREATINE KINASE 140 U/L (26-192); TOTAL BILIRUBIN ADULT 0.4 MG/DL (0.2-1.0)
[2016-12-04] MEDS ORDERED: AZITHROMYCIN INJ 500 MG in SODIUM CHLOR 0.9% 250 ML INJ 250 ML IV ONE (06:15)
[2016-12-04] MEDS ORDERED: methylPREDNISolone SOD SUCC 125 MG/2 ML VIAL IV PUSH ONE (06:15)
[2016-12-04] MEDS ORDERED: SODIUM CHLORIDE 0.9% FLUSH 10 ML FLUSH IVF PRN (06:15)
--- NOTE | 2016-12-04 06:16 | RADRPT ---
EXAM DATE/TIME: 12/04/2016 05:15 [place] COMPARISON: CHEST SINGLE AP, April 26, 2016, 17:13. INDICATIONS : Short of breath. MEDICAL HISTORY : None. SURGICAL HISTORY : None. ENCOUNTER: Initial ACUITY: 1 day PAIN SCORE: 0/10 LOCATION: Bilateral chest FINDINGS: A single view of the chest demonstrates the lungs to be symmetrically aerated without evidence of mas s, infiltrate or effusion. The cardiomediastinal contours are unremarkable. Osseous structures are intact. CONCLUSION: Stable chest with no acute disease Bill Main MD on December 04, 2016 at 6:14 Board Certified Radiologist. This report was verified electronically.
[2016-12-04 06:17] LABS: CKMB 1.2 NG/ML (0.5-3.6)
[2016-12-04 06:18] LABS: BACTERIA, URINE FEW /hpf; BLOOD, URINE SMALL (NEG); GLUCOSE,URINE NEG (NEG); KETONE, URINE NEG (NEG); MUCUS URINE FEW /lpf (OCC); NITRITE,URINE NEG (NEG); PH, URINE 5.5 (5.0-8.5); RENAL EPITHELIAL CELLS 5 /hpf; SQUAMOUS EPITHELIAL CELL URINE 2 /hpf (0-5); URINE COLOR YELLOW (YELLW/STRAW)
[2016-12-04 06:19] LABS: COMMENT (UR) CULTURE INDICATED; CULTURE IF INDICATED CULTURE INDICATED
[2016-12-04] MEDS: RESP: ALBUTEROL 2.5 MG/IPRATROPIUM 0.5 MG NEB (SCH) INH ×2 (06:22→06:23)
[2016-12-04] MEDS: cefTRIAXone INJ 1,000 MG in SODIUM CHLORIDE 0.9% INJ 100 ML IV ONE ×2 (06:42→08:21)
[2016-12-04] MEDS ORDERED: BISACODYL 10 MG SUPP RECTAL PRN (07:30)
[2016-12-04] MEDS ORDERED: ACETAMINOPHEN 325 MG TAB PO PRN (07:30)
[2016-12-04] MEDS ORDERED: NALOXONE HCL 0.4 MG/ML AMP IV PUSH PRN (07:30)
[2016-12-04] MEDS ORDERED: LACTULOSE SYRUP 20 GM/30 ML CUP PO PRN (07:30)
[2016-12-04] MEDS ORDERED: ONDANSETRON HCL 4 MG/2 ML VIAL IVP PRN (07:30)
[2016-12-04] MEDS ORDERED: SENNOSIDES 8.6 MG TAB PO PRN (07:30)
[2016-12-04] MEDS ORDERED: SODIUM CHLORIDE 0.9% FLUSH 10 ML FLUSH IV FLUSH PRN (07:30)
[2016-12-04] MEDS ORDERED: MAGNESIUM HYDROXIDE SUSP 30 ML CUP PO PRN (07:30)
[2016-12-04] MEDS: SODIUM CHLORIDE 0.9% FLUSH 10 ML FLUSH IV FLUSH SCH ×2 (09:31→21:04)
[2016-12-04] MEDS: ENOXAPARIN SODIUM 40 MG/0.4 ML SYRINGE SQ SCH (09:39)
[2016-12-04] MEDS: RESP: ALBUTEROL 2.5 MG/IPRATROPIUM 0.5 MG NEB (PRN) NEB (11:05)
--- NOTE | 2016-12-04 14:56 | EKG ---
Date Performed: 12/04/2016 Time Performed: 05:37:40 PTAGE: 81 years EKG: Sinus rhythm LEFT ANTERIOR FASCICULAR BLOCK MINIMAL VOLTAGE CRITERIA FOR LVH, CONSIDER NORMAL VARIANT POSSIBLE AN TERIOR MYOCARDIAL INFARCTION ABNORMAL ECG PREVIOUS TRACING : 12/04/2016 05.37 Compared to prior tracing no significant change DOCTOR: Lázaro Nelson Interpretating Date/Time 12/04/2016 14:54:40
--- NOTE | 2016-12-04 17:05 | MH ---
cc: LEVI PRETTY DATE OF ADMISSION 12/04/2016 DATE OF [address] Levi Pretty. PRIMARY CARE PHYSICIAN Dr. Moiz Umanzor. REASON FOR ADMISSION Generalized weakness and shortness of breath. HISTORY OF THE PRESENT ILLNESS The patient is very pleasant 81-year-old female with significant past history of COPD. She is using puffers at home. She is feeling weak for the past three days. And having a cough and congestion beginning three days ago. She was weak and she slid down / fell last night. She is unsure how she fell and lost her balance. She did not lose consciousness. She denies any head trauma. She was brought up to the ER. At home she had a heart rate in the 130s as she was told by the talend developer. In the ER she was evaluated by the emergency room physician and found the patient has shortness of breath for two weeks and she has wheezing and congestion and for the past three days she has not felt very well. She has no other symptoms except a cough which is nonproductive. She was not sure about fever as per patient she may have. But she has no chills. PAST MEDICAL HISTORY 1. COPD. 2. Rheumatoid arthritis. MEDICATIONS Reported as: 1. ProAir. 2. Methotrexate. ALLERGIES NO KNOWN DRUG ALLERGIES. SOCIAL HISTORY The patient does not smoke, drink or do any drugs. FAMILY HISTORY Noncontributory. PAST SURGICAL HISTORY Surgery on the right knee. REVIEW OF SYSTEMS As described above in the history of present illness, otherwise negative for 10 systems. PHYSICAL EXAMINATION GENERAL: The patient is alert and oriented, overweight, lying on bed without any apparent distress at present. VITAL SIGNS: The patient is afebrile, pulse is 86, respiratory rate 20, blood pressure 131/61, pulse ox of 96%. HEENT: Head is atraumatic, normocephalic. Eyes, negative conjunctival icterus. Mouth unremarkable. NECK: Supple. No increased JVD. Central trachea. CHEST: Decreased air entry bibasilarly with expiratory wheezes scattered. CARDIOVASCULAR: S1-S2 audible. Unable to hear any S3 gallop. ABDOMEN: Soft and nontender. No organomegaly. Positive bowel sounds. MUSCULOSKELETAL: No clubbing, cyanosis or pedal edema. CENTRAL NERVOUS SYSTEM: Alert and oriented. Normal facial features. Moving her extremities. SKIN: Warm and moist. PSYCHIATRIC: Appropriate mood and affect. LABORATORY DATA Investigations, WBC, hemoglobin, hematocrit and platelet count within normal limits. BMP shows estimated GFR 79, otherwise within normal limits. LFTs within normal limits. Troponin is less than 0.02. B-type natriuretic peptide 18. Albumin 3.3. PT 11.8. INR and APTT within normal limits. UA shows urine leukocyte esterase large, rbc's 13, wbc's 10, bacteria few, mucus few, yeast few. Culture indicated. IMAGING Chest x-ray was done which shows stable chest with no acute disease. EKG was done which showed sinus rhythm. No acute ST-T wave changes. No acute ST elevation. ASSESSMENT 1. Generalized weakness secondary to COPD exacerbation. 2. COPD exacerbation. 3. Urinary tract infection. 4. Cough likely secondary to COPD exacerbation / bronchitis. 5. Rheumatoid arthritis history. PLAN 1. Admit the patient under observation. 2. IV steroids. 3. IV antibiotic. 4. Breathing treatment. 5. Cough medication. 6. Continue home medications as indicated. 7. Encourage activity. 8. Discussed with the patient. 9. Discussed with the RN. Further recommendations to follow as the patient progresses. Levi Pretty MD JP/ERNST /4:05 PM /4:19 PM
[2016-12-04] MEDS: guaiFENesin SOLUTION 200 MG/10 ML CUP PO PRN (18:26)
[2016-12-04] MEDS: methylPREDNISolone SOD SUCC 40 MG/1 ML VIAL IV PUSH SCH (21:04)
[2016-12-05 03:43] VITALS: BP 140/71; PULSE 68; RESP 17; TEMP 97.9; O2SAT 95
[2016-12-05] MEDS: RESP: ALBUTEROL 2.5 MG/IPRATROPIUM 0.5 MG NEB (PRN) NEB ×4 (07:29→20:05)
[2016-12-05 07:35] VITALS: BP 142/76; PULSE 75; RESP 20; TEMP 98; O2SAT 94
[2016-12-05] MEDS: methylPREDNISolone SOD SUCC 40 MG/1 ML VIAL IV PUSH SCH ×2 (10:04→21:07)
[2016-12-05] MEDS: ENOXAPARIN SODIUM 40 MG/0.4 ML SYRINGE SQ SCH (10:05)
[2016-12-05] MEDS: cefTRIAXone INJ 1,000 MG in SODIUM CHLORIDE 0.9% INJ 100 ML IV SCH (10:06)
[2016-12-05] MEDS: SODIUM CHLORIDE 0.9% FLUSH 10 ML FLUSH IV FLUSH SCH ×2 (10:07→21:07)
[2016-12-05 11:23] VITALS: BP 119/68; PULSE 69; RESP 18; TEMP 98.6; O2SAT 94
[2016-12-05 14:54] VITALS: BP 124/62; PULSE 71; RESP 18; TEMP 97.9; O2SAT 95
[2016-12-05] MEDS: guaiFENesin SOLUTION 200 MG/10 ML CUP PO PRN (16:34)
--- NOTE | 2016-12-05 18:24 | HHI.PR ---
Subjective Remarks Patient has significant improvement in breathing Is still has some cough No nausea vomiting No dizziness Walking some Feeling improvement Review of system for 10 point system otherwise unremarkable Objective Objective Results - Vital Signs Date Time Temp Pulse Resp B/P (MAP) Pulse Ox O2 Delivery O2 Flow Rate FiO2 12/05/16 14:54 97.9 71 18 124/62 (82) 95 12/05/16 11:23 98.6 69 18 119/68 (85) 94 12/05/16 07:35 98.0 75 20 142/76 (98) 94 12/05/16 03:43 97.9 68 17 140/71 (94) 95 12/04/16 23:23 98.8 73 17 140/65 (90) 93 12/04/16 20:09 98.3 79 18 121/59 (79) 95 I/O 12/04/16 12/04/16 12/04/16 12/05/16 12/05/16 12/05/16 06:59 14:59 22:59 06:59 14:59 22:59 Intake Total 800 ml 600 ml Balance 800 ml 600 ml Intake Oral 800 ml 600 ml # Voids 3 3 # Bowel Movements 1 Result Diagram: 12/04/16 0515 12/04/16 0515 Other Results Date/Time Source Procedure Growth Status 12/04/16 08:20 Blood Peripheral Aerobic Blood Culture - Preliminary NO GROWTH IN 1 DAY Resulted 12/04/16 08:20 Blood Peripheral Anaerobic Blood Culture - Preliminary NO GROWTH IN 1 DAY Resulted 12/04/16 06:00 Urine Clean Catch Urine Culture - Final 50-100,000 CFU/ML MIXED JOHNATHON... Complete Physical Exam Physical Exam GENERAL: The patient is alert and oriented, overweight, lying on bed without any apparent distress at present. VITAL SIGNS: Reviewed HEENT: Head is atraumatic, normocephalic. Eyes, negative conjunctival icterus. Mouth unremarkable. NECK: Supple. No increased JVD. Central trachea. CHEST: Decreased air entry bibasilarly with occasional expiratory wheezes. CARDIOVASCULAR: S1-S2 audible. Unable to hear any S3 gallop. ABDOMEN: Soft and nontender. No organomegaly. Positive bowel sounds. MUSCULOSKELETAL: No clubbing, cyanosis or pedal edema. CENTRAL NERVOUS SYSTEM: Alert and oriented. Normal facial features. Moving her extremities. SKIN: Warm and moist. PSYCHIATRIC: Appropriate mood and affect. A/P Assessment and Plan LABORATORY DATA Investigations, WBC, hemoglobin, hematocrit and platelet count within normal limits. 1. Generalized weakness secondary to COPD exacerbation. 2. COPD exacerbation. 3. Urinary tract infection. 4. Cough likely secondary to COPD exacerbation / bronchitis. 5. Rheumatoid arthritis history. PLAN Labs reviewed Change to by mouth steroids. IV antibiotic. 4. Breathing treatment. 5. Cough medication. 6. Continue home medications as indicated. 7. Encourage activity. 8. Discussed with the patient. 9. Discussed with the RN. If is stable likely DC tomorrow we will watch on by mouth prednisone Further recommendations to follow as the patient progresses. Tatum Pretty MD Dec 05, 2016 18:24
[2016-12-05] MEDS ORDERED: COUG100S PO (18:27)
[2016-12-05] MEDS ORDERED: PRED20 PO (18:27)
[2016-12-05 19:15] VITALS: BP 141/91; PULSE 74; RESP 16; TEMP 98.3; O2SAT 97
[2016-12-05 20:05] VITALS: O2SAT 98
[2016-12-06 00:11] VITALS: BP 135/82; PULSE 71; RESP 18; TEMP 98.1; O2SAT 94
[2016-12-06 03:48] VITALS: BP 146/73; PULSE 74; RESP 18; TEMP 98.1; O2SAT 94
[2016-12-06 08:28] VITALS: BP 188/88; PULSE 72; RESP 20; TEMP 97.9; O2SAT 96
[2016-12-06] MEDS: ENOXAPARIN SODIUM 40 MG/0.4 ML SYRINGE SQ SCH (08:29)
[2016-12-06] MEDS: methylPREDNISolone SOD SUCC 40 MG/1 ML VIAL IV PUSH SCH (08:30)
[2016-12-06] MEDS: SODIUM CHLORIDE 0.9% FLUSH 10 ML FLUSH IV FLUSH SCH (08:34)
[2016-12-06] MEDS: cefTRIAXone INJ 1,000 MG in SODIUM CHLORIDE 0.9% INJ 100 ML IV SCH (08:34)
[2016-12-06] MEDS: RESP: ALBUTEROL 2.5 MG/IPRATROPIUM 0.5 MG NEB (PRN) NEB (08:44)
[2016-12-06 08:45] VITALS: O2SAT 96
[2016-12-06 12:20] VITALS: BP 152/70; PULSE 70; RESP 20; TEMP 96.8; O2SAT 96
--- NOTE | 2016-12-06 15:05 | HHI.PR ---
Subjective Remarks Patient is breathing better. Did walk without any shortness of breath Occasional cough No nausea vomiting No dizziness Walking some Feeling improvement Review of system for 10 point system otherwise unremarkable Objective Objective Results - Vital Signs Date Time Temp Pulse Resp B/P (MAP) Pulse Ox O2 Delivery O2 Flow Rate FiO2 12/06/16 12:20 96.8 70 20 152/70 (97) 96 12/06/16 08:45 96 21 12/06/16 08:28 97.9 72 20 188/88 (121) 96 12/06/16 03:48 98.1 74 18 146/73 (97) 94 12/06/16 00:11 98.1 71 18 135/82 (99) 94 12/05/16 20:05 98 21 12/05/16 19:15 98.3 74 16 141/91 (108) 97 I/O 12/05/16 12/05/16 12/05/16 12/06/16 12/06/16 12/06/16 07:00 15:00 23:00 07:00 15:00 23:00 Intake Total 600 ml Balance 600 ml Intake Oral 600 ml # Voids 3 Result Diagram: 12/04/16 0515 12/04/16 0515 Other Results Date/Time Source Procedure Growth Status 12/04/16 08:20 Blood Peripheral Aerobic Blood Culture - Preliminary NO GROWTH IN 2 DAYS Resulted 12/04/16 08:20 Blood Peripheral Anaerobic Blood Culture - Preliminary NO GROWTH IN 2 DAYS Resulted 12/04/16 06:00 Urine Clean Catch Urine Culture - Final 50-100,000 CFU/ML MIXED JOHNATHON... Complete Physical Exam Physical Exam GENERAL: The patient is alert and oriented, overweight, lying on bed without any apparent distress at present. VITAL SIGNS: Reviewed HEENT: Head is atraumatic, normocephalic. Eyes, negative conjunctival icterus. Mouth unremarkable. NECK: Supple. No increased JVD. Central trachea. CHEST: Good air entry bibasilarly with no wheezes. CARDIOVASCULAR: S1-S2 audible. Unable to hear any S3 gallop. ABDOMEN: Soft and nontender. No organomegaly. Positive bowel sounds. MUSCULOSKELETAL: No clubbing, cyanosis or pedal edema. CENTRAL NERVOUS SYSTEM: Alert and oriented. Normal facial features. Moving her extremities. SKIN: Warm and moist. PSYCHIATRIC: Appropriate mood and affect. A/P Assessment and Plan 1. Generalized weakness secondary to COPD exacerbation. 2. COPD exacerbation. 3. Urinary tract infection. 4. Cough likely secondary to COPD exacerbation / bronchitis. 5. Rheumatoid arthritis history. PLAN Labs reviewed steroids. antibiotic. 4. Breathing treatment. 5. Cough medication. 6. Continue home medications as indicated. 7. Encourage activity. 8. Discussed with the patient. 9. Discussed with the RN. As patient is stable will DC home on by mouth prednisone Discussed with patient about discharge planning. Discussed with bilingual case manager for discharge planning with home health care Tatum Pretty MD Dec 06, 2016 15:05
--- NOTE | 2016-12-06 15:07 | HHI.FF ---
Face to Face Verification Diagnosis: (1) COPD exacerbation (2) Generalized weakness (3) Pre-syncope Physical Therapy Order: Evaluate and Treat Home Health Nursing Order: Medical education I have seen patient Lissy Gilbert on 12/06/16. My clinical findings support the need for the requested home health care services because: Patient has SOB I certify that my clinical findings support that this patient is homebound because: Unsafe to leave home unassisted Tatum Pretty MD Dec 06, 2016 15:07
== END 2016-12-06 17:33 | disposition home or self-care (01) ==
LOC: NEPE 04:15 → NEDA 07:18 → NEPHCDU 09:57
PROVIDERS: ADMIT Specialist; ATTEND Specialist
DX: J44.1 Chronic obstructive pulmonary disease with (acute) exacerbation (principal); N39.0 Urinary tract infection, site not specified; I44.4 Left anterior fascicular block; R94.31 Abnormal electrocardiogram [ECG] [EKG]; R06.02 Shortness of breath; E03.9 Hypothyroidism, unspecified; M06.9 Rheumatoid arthritis, unspecified; M19.90 Unspecified osteoarthritis, unspecified site; Z87.11 Personal history of peptic ulcer disease; Z96.651 Presence of right artificial knee joint
CPT/HCPCS: 71010; 80053; 81001; 82550; 82552; 83690; 83735; 83880; 84484; 85025; 85610; 85730; 87040; 87086; 93005; 94640; 94664; 96365; 96366; 96367; 96372; 96374; 96375; 96376; 97110; 97116; 97162; 97530; 99285; G0378; G8987; G8988; J0456; J0696; J1650; J2920; J2930; J7050